=== PATIENT | male | born 1930 | race Caucasian/White ===

== ENCOUNTER 2017-01-25 12:51 | Inpatient (IN) | payer OTHER ==
[2017-01-25] MEDS ORDERED: NS 1,000 ML IV PRN (13:53)
[2017-01-25] MEDS ORDERED: SODIUM CHLORIDE 0.9% INJ ONE (13:54)
[2017-01-25] MEDS ORDERED: PROTONIX IV ONE (13:54)
--- NOTE | 2017-01-25 13:57 | PROVIDER DOCUMENTATION ---
HPI-Abdominal Pain/GI Problem - General Source: family - History of Present Illness-ABD Nature of Presenting Problems: Patient is a 86 y/o M that presents with possible lower GI bleed. Family reports patient has a large dark BM Wednesday. Home Health came to check on patient , sent in sample and it came back positive for blood in stool. patient denies any pain. He is on Xarelto. Reports some generalized weakness. Quality of Pain: reports: none Severity in ED: reports: moderate Onset/Duration: reports: abrupt, 4 days ago Timing: reports: still present Activities at Onset: reports: none Modifying Factors: improves with: nothing Associated Symptoms: reports: weakness. denies: back/neck pain, constipation, diaphoresis, diarrhea, EENT symptoms, fever/chills, genitourinary problems, nausea, vomiting Dark Stools Present?: reports: black Rectal Bleeding: reports: none Rectal Pain: reports: none Recently seen or treated by another doctor?: No <Best Palma - Last Filed: 01/25/17 16:33> <Kuldeep Sarkar I - Last Filed: 01/25/17 16:43> - General Chief Complaint: GI Bleed Stated Complaint: POSS GI BLEED Time Seen by Provider: 01/25/17 13:40 Allergies/Adverse Reactions: Patient Allergies Allergy/AdvReac Type Severity Reaction Status Date / Time promethazine HCl * Allergy Intermediate Unknown Verified 01/25/17 13:12 [From Phenergan] Penicillins Allergy ANAPHYLAXIS Verified 01/25/17 13:12 piperacillin sodium * Allergy Unknown Verified 01/25/17 13:12 [From Zosyn] tazobactam sodium * Allergy Unknown Verified 01/25/17 13:12 [From Zosyn] adhesive AdvReac Mild RASH Verified 01/25/17 13:12 Home Medications: Home Medication List Medication Instructions Recorded Confirmed Last Taken Type Lansoprazole [Prevacid] 30 mg PO DAILY #0 12/13/13 01/25/17 01/25/17 08:00 Rx Amlodipine [Norvasc] 5 mg PO DAILY #30 tablet 11/29/15 01/25/17 01/25/17 08:00 Rx Ascorbic Acid [Vitamin C] 500 mg PO DAILY #30 tablet 11/29/15 01/25/17 01/25/17 08:00 Rx Aspirin 81 mg PO DAILY #30 chewtab 11/29/15 01/25/17 01/25/17 08:00 Rx Atenolol [Tenormin] 25 mg PO DAILY #30 tablet 11/29/15 01/25/17 01/25/17 08:00 Rx Calcium Carbonate/Vit D3 [Caltrate 1 each PO DAILY #30 tablet 11/29/15 01/25/17 01/25/17 08:00 Rx 600 + D] Cholecalciferol (Vit D3) [Vitamin 2,000 unit PO DAILY #30 tablet 11/29/1501/25/17 08:00 Rx D3] Cyanocobalamin (Vitamin B-12) 2,000 mg PO DAILY #30 tab.subl 11/29/15 01/25/17 01/25/17 08:00 Rx [Vitamin B-12] Escitalopram [Lexapro] 20 mg PO QAM #30 tablet 11/29/15 01/25/17 01/25/17 08:00 Rx Finasteride [Proscar] 5 mg PO DAILY #30 tablet 11/29/15 01/25/17 01/25/17 08:00 Rx Lipase/Protease/Amylase [Creon] 12,000 units PO TID CC #90 capsule 11/29/1501/25/17 08:00 Rx Rivaroxaban [Xarelto] 15 mg PO HS #30 tablet 11/29/15 01/25/17 01/25/17 08:00 Rx SIMVAstatin [Zocor] 10 mg PO QHS #30 tablet 11/29/15 01/25/17 01/25/17 08:00 Rx Buspirone [Buspar] 10 mg PO HS 01/25/17 01/25/17 01/24/17 22:00 History Donepezil [Aricept] 10 mg PO DAILY 01/25/17 01/25/17 01/25/17 08:00 History Glipizide 5 mg PO DAILY 01/25/17 01/25/17 01/25/17 08:00 History Quetiapine E.r. [Seroquel Xr] 50 mg PO HS 01/25/17 01/25/17 01/24/17 22:00 History Tamsulosin HCl 0.4 mg PO DAILY 01/25/17 01/25/17 01/25/17 08:00 History Vitamin E 400 mg PO DAILY 01/25/17 01/25/17 01/25/17 08:00 History Review of Systems - Adult - REVIEW OF SYSTEMS - ADULT Constitutional: denies: fever Eyes: reports: no symptoms reported Ears, Nose, Mouth & Throat: denies: ear pain, sinus problem, throat pain Cardiovascular: denies: chest pain, palpitations, syncope Respiratory: denies: cough, shortness of breath, wheezing Gastrointestinal: reports: rectal bleeding. denies: abdominal pain, hematemesis , constipation, diarrhea, nausea, vomiting Genitourinary: denies: dysuria, frequency, hematuria, urgency Musculoskeletal: reports: no symptoms reported Integumentary: reports: no symptoms reported Neurological: reports: no symptoms reported Psychiatric: reports: no symptoms reported Endocrine: reports: no symptoms reported Hematologic/Lymphatic: reports: no symptoms reported Allergic/Immunologic: reports: no symptoms reported All Other Systems: Reviewed and Negative <Best Palma - Last Filed: 01/25/17 16:33> Past History - Adult - PAST MEDICAL HISTORY-ADULT Review of Records: reports: Old Records Reviewed, Nursing Assessment Review, Medications Reviewed Cardiovascular: reports: A-Fib, CAD, HTN, hyperlipidemia, AL Respiratory: reports: COPD, sleep apnea Gastrointestinal: reports: GERD, pancreatitis (due to stricture, had to have percutaneous drainage due to unablitiy to get to throught EGD) Genitourinary: reports: cancer (hx of bladder), kidney stones, other (BPH) Musculoskeletal: reports: osteoporosis Neurological: reports: CVA, dementia, TIA, other (brain bleed) Other Conditions: reports: other (BPH) - PRIOR SURGERIES/PROCEDURES Surgical/Procedure History: reports: appendectomy, CABG, cholecystectomy, joint replacement (total hip and total shoulder), other (Whipple, bladder surgery) - IMMUNIZATION STATUS Childhood Immunizations: See Nurse Assessment Flu Vaccine: See Nurse Assessment - FAMILY HISTORY Family History: reviewed, not pertinent - SOCIAL HISTORY Smoking: non-smoker Living Situation: family <Best Palma - Last Filed: 01/25/17 16:33> Physical Exam-General - PHYSICAL EXAM-ADULT Initial Vital Signs Reviewed: Yes - CONSTITUTIONAL General Appearance: alert, other (ill appearing) - EYES Eyes: PERRL/EOMI, pink conjunctivae - HEAD, EARS, NOSE, MOUTH & THROAT HENMT: normocephalic/atraumatic, moist mucous membranes, normal ENT inspection - NECK Neck: full range of motion, normal inspection. negative: lymphadenopathy - RESPIRATORY Respiratory: lungs clear, normal breath sounds, no respiratory distress, no accessory muscle use - CARDIOVASCULAR Cardiovascular: no gallop, no murmur, bradycardia - GASTROINTESTINAL (ABDOMEN) Abdominal Exam: normal bowel sounds, non tender, soft, no organomegaly, no pulsatile mass, other (extensive midline surgical scar) - MUSCULOSKELETAL Extremity: no pedal edema, normal capillary refill, pelvis stable - SKIN Integumentary: pallor. negative: cyanosis - NEUROLOGIC Neurologic: grossly normal, no motor/sensory deficits - PSYCHIATRIC Psych/Mental Status: normal mood/affect, oriented x 3 <Best Palma - Last Filed: 01/25/17 16:33> Progress - PLAN OF CARE/RESULTS Progress/Plan/Lab Results: plan of care-labs, meds 0483- compared old CBC to one last in system, it reflected that the patient's H&H and platelet count went from 9 and 30 to [address]Scott Christopher paged Vital Signs Temp Pulse Resp BP Pulse Ox 01/25/17 14:52 73 19 98/62 93 L 01/25/17 12:52 97.8 F 58 L 14 113/58 96 promethazine HCl * [From Phenergan] Allergy (Intermediate, Verified 01/25/17 13: 12) Unknown bp bottoms out Penicillins Allergy (Verified 01/25/17 13:12) ANAPHYLAXIS piperacillin sodium * [From Zosyn] Allergy (Verified 01/25/17 13:12) Unknown tazobactam sodium * [From Zosyn] Allergy (Verified 01/25/17 13:12) Unknown adhesive Adverse Reaction (Mild, Verified 01/25/17 13:12) RASH Lansoprazole [Prevacid] 30 mg PO DAILY #0 12/13/13 Amlodipine [Norvasc] 5 mg PO DAILY #30 tablet 11/29/15 Ascorbic Acid [Vitamin C] 500 mg PO DAILY #30 tablet 11/29/15 Aspirin 81 mg PO DAILY #30 chewtab 11/29/15 Atenolol [Tenormin] 25 mg PO DAILY #30 tablet 11/29/15 Calcium Carbonate/Vit D3 [Caltrate 600 + D] 1 each PO DAILY #30 tablet 11/29/15 Cholecalciferol (Vit D3) [Vitamin D3] 2,000 unit PO DAILY #30 tablet 11/29/15 Cyanocobalamin (Vitamin B-12) [Vitamin B-12] 2,000 mg PO DAILY #30 tab.subl 12/14 Escitalopram [Lexapro] 20 mg PO QAM #30 tablet 11/29/15 Finasteride [Proscar] 5 mg PO DAILY #30 tablet 11/29/15 Lipase/Protease/Amylase [Creon] 12,000 units PO TID CC #90 capsule 11/29/15 Rivaroxaban [Xarelto] 15 mg PO HS #30 tablet 11/29/15 SIMVAstatin [Zocor] 10 mg PO QHS #30 tablet 11/29/15 Buspirone [Buspar] 10 mg PO HS 01/25/17 Donepezil [Aricept] 10 mg PO DAILY 01/25/17 Glipizide 5 mg PO DAILY 01/25/17 Quetiapine E.r. [Seroquel Xr] 50 mg PO HS 01/25/17 Tamsulosin HCl 0.4 mg PO DAILY 01/25/17 Vitamin E 400 mg PO DAILY 01/25/17 Laboratory 01/25/17 01/25/17 01/25/17 13:56 13:56 13:56 WBC RBC Hgb Hct MCV MCH MCHC RDW Std Deviation Plt Count MPV Immature Gran % (Auto) Neut % (Auto) Lymph % (Auto) Stark % (Auto) Eos % (Auto) Baso % (Auto) Immature Gran # (Auto) Neut # (Auto) Lymph # (Auto) Stark # (Auto) Eos # (Auto) Baso # (Auto) PT 15.4 H INR 1.45 PTT (Actin FS) 34.0 Sodium 139 Potassium 4.6 Chloride 108 H Carbon Dioxide 18 L Anion Gap 13 BUN 49 H Creatinine 2.8 H Estimated GFR/1.73 m2 21 BUN/Creatinine Ratio 18 Glucose 269 H Calculated Osmolality 300 Calcium 8.4 L Total Bilirubin 0.21 AST 14 ALT 9 L Alkaline Phosphatase 149 H Total Protein 6.3 Albumin 2.8 L Globulin 3.5 Albumin/Globulin Ratio 0.8 Blood Type A POSITIVE Antibody Screen NEGATIVE 01/25/17 13:56 WBC 5.75 RBC 2.33 L Hgb 6.5 L Hct 21.1 L MCV 90.6 MCH 27.9 MCHC 30.8 L RDW Std Deviation 16.2 H Plt Count 117 L MPV 10.4 Immature Gran % (Auto) 0.5 Neut % (Auto) 78.2 H Lymph % (Auto) 10.6 L Stark % (Auto) 9.4 H Eos % (Auto) 1.0 Baso % (Auto) 0.3 Immature Gran # (Auto) 0.03 Neut # (Auto) 4.49 Lymph # (Auto) 0.61 L Stark # (Auto) 0.54 Eos # (Auto) 0.06 Baso # (Auto) 0.02 PT INR PTT (Actin FS) Sodium Potassium Chloride Carbon Dioxide Anion Gap BUN Creatinine Estimated GFR/1.73 m2 BUN/Creatinine Ratio Glucose Calculated Osmolality Calcium Total Bilirubin AST ALT Alkaline Phosphatase Total Protein Albumin Globulin Albumin/Globulin Ratio Blood Type Antibody Screen Orders Category Date Time Status Saline Loc DIRECTED Care 01/25/17 13:53 Active CBC WITH ELECTRONIC DIFF [HEME] Stat Lab 01/25/17 13:56 Completed COMPREHENSIVE METABOLIC PANEL [CHEM] Stat Lab 01/25/17 13:56 Completed OCCULT BLOOD NON-FECES Stat Lab 01/25/17 13:53 Uncollected OCCULT BLOOD SCREENING [STOOL] Stat Lab 01/25/17 13:53 Uncollected PRBC [LRPC (RED CELLS)] [BBK] Stat Lab 01/25/17 16:23 Uncollected PROTIME WITH INR [COAG] Stat Lab 01/25/17 13:56 Completed PTT [COAG] Stat Lab 01/25/17 13:56 Completed TYPE & SCREEN [BBK] Stat Lab 01/25/17 13:56 Completed 0.9% Sodium Chloride Inj [Ns] 1,000 ml Med 01/25/17 13:53 Active IV 125 mls/hr Pantoprazole [Protonix] Med 01/25/17 13:54 Discontinued 40 mg IV NOW ONE Sodium Chloride 0.9% Med 01/25/17 13:54 Discontinued 10 ml INJ NOW ONE - CONSULTS/PCP/HOSPITALIST Notification #1 *Consult/PCP/Hospitalist*: Dr.Scott Christopher Time Discussed: 16:33 Reason/Comments: admit for lower GI bleed Consult Disposition: Admit <Palma,Best T. - Last Filed: 01/25/17 16:33> Departure - Departure Time of Disposition Order: 16:35 Certified Medical Emergency: Emergent <Best Palma - Last Filed: 01/25/17 16:33> - Departure Time of Disposition Order: 16:40 Certified Medical Emergency: Emergent <Kuldeep Sarkar I - Last Filed: 01/25/17 16:43> - Departure DIAGNOSIS: Lower GI bleed Disposition: ADMITTED INPATIENT 09 Condition: Stable Referrals: Humza Christopher MD [Primary Care Provider] - Attestation - Scribe Verification/Attestation Scribe:: Best Palma Acting as Scribe for:: Kuldeep Sarkar Scribe documention review:: This chart was documented by a scribe and accurately reflects the service the provider performed and the decisions made by the provider. <Best Palma - Last Filed: 01/25/17 16:33> Physician Attestation - Physician Attestation I, the provider, attest to the following statement:: Kuldeep Sarkar Physician documentation Attestation:: This documentation recorded by the scribe accurately reflects the service I personally performed and the decisions made by me. <Best Palma - Last Filed: 01/25/17 16:33> - Physician Attestation I, the provider, attest to the following statement:: Kuldeep Sarkar Physician documentation Attestation:: This documentation recorded by the scribe accurately reflects the service I personally performed and the decisions made by me. <Kuldeep Sarkar I - Last Filed: 01/25/17 16:43>
[2017-01-25 14:17] LABS: MANUAL DIFF NEEDED? NO
[2017-01-25 14:29] LABS: BASO% 0.3 % (0.0-0.8); EOS# 0.06 X1000 (0.0-0.7); HEMATOCRIT 21.1 % (42.0-52.0); HEMOGLOBIN 6.5 g/dL (14.0-18.0); IMM GRAN# 0.03 X1000 (0.0-0.04); IMM GRAN% 0.5 % (0.0-0.5); LYMPH# 0.61 X1000 (1.2-3.4); LYMPH% 10.6 % (20.5-51.1); MCH 27.9 PG (27-31); MCHC 30.8 g/dL (33-37); MCV 90.6 FL (81-99); MONO# 0.54 X1000 (0.11-0.59); MONO% 9.4 % (1.7-9.3); MPV 10.4 FL (7.4-10.4); NEUT% 78.2 % (42.2-75.2); PLT 117 X1000 (130-400); RBC 2.33 XMIL (4.7-6.1)
[2017-01-25 14:32] LABS: INR 1.45; PROTIME 15.4 Seconds (9.2-11.7)
[2017-01-25 14:43] LABS: ALBUMIN 2.8 g/dL (3.5-5.0); CALCIUM 8.4 mg/dL (8.8-10.2); POTASSIUM 4.6 mmol/L (3.5-5.1); TOTAL BILIRUBIN 0.21 mg/dL (0.20-1.00); TOTAL PROTEIN 6.3 g/dL (6.3-8.3)
[2017-01-25] MEDS ORDERED: NS 500 ML IV ONE (17:48)
[2017-01-25] MEDS ORDERED: ZOFRAN IV PRN (19:10)
[2017-01-25] MEDS ORDERED: TYLENOL PO PRN (19:10)
[2017-01-25] MEDS ORDERED: NS 1,000 ML IV SCH (19:10)
[2017-01-25 21:12] LABS: URINE CULTURE NEEDED? NO; URINE SOURCE CATH
[2017-01-25 21:16] LABS: BILIRUBIN URINE NEGATIVE (NEGATIVE); BLOOD URINE TRACE (NEGATIVE); COLOR YELLOW; GLUCOSE URINE NEGATIVE (NEGATIVE); LEUKOCYTES URINE NEGATIVE (NEGATIVE); NITRITE URINE NEGATIVE (NEGATIVE); PROTEIN URINE NEGATIVE (NEGATIVE); SP GRAVITY URINE 1.016; TURBIDITY URINE CLEAR (CLEAR); UROBILINOGEN URINE NORMAL (NORMAL)
[2017-01-25 21:18] LABS: URINE MICRO REVIEW NEEDED? YES
[2017-01-25 21:21] LABS: UR EPITHELIAL CELLS <10 /HPF (<10); URINE BACTERIA NEGATIVE /HPF; URINE RBC <10 /HPF (<10); URINE WBC <10 /HPF (<10)
[2017-01-25 21:45] LABS: URINE SMALL ROUND CELLS TRANS PRESENT
[2017-01-25] MEDS: PROTONIX IV SCH (21:58)
[2017-01-25] MEDS: HUMALOG SUBQ SCH (21:59)
[2017-01-25] MEDS: NS 1,000 ML IV SCH (22:00)
[2017-01-25] MEDS: SEROQUEL XR PO SCH (22:13)
[2017-01-25] MEDS: BUSPAR PO SCH (22:13)
[2017-01-26 02:30] LABS: HEMATOCRIT 25.9 % (42.0-52.0); HEMOGLOBIN 8.4 g/dL (14.0-18.0)
[2017-01-26 02:34] LABS: ALBUMIN 2.5 g/dL (3.5-5.0); CALCIUM 8.3 mg/dL (8.8-10.2); POTASSIUM 3.8 mmol/L (3.5-5.1); TOTAL BILIRUBIN 0.43 mg/dL (0.20-1.00)
--- NOTE | 2017-01-26 04:49 | HISTORY AND PHYSICAL ---
PRIMARY CARE PHYSICIAN: Humza Christopher MD CHIEF COMPLAINT: Melenic stools. HISTORY OF PRESENT ILLNESS: An 86-year-old white male with a very complicated past medical history, presents for evaluation of above-mentioned symptoms. Current history of present illness began on January 13. At that time, patient was evaluated in clinic secondary to intractable nausea and vomiting. He was noted to have had 1 episode of vomitus significant for blood clots. Full evaluation was pursued. The patient was found to have a urinary tract infection. Treatment with levofloxacin therapy was initiated. The patient did reasonably well until evening. At that time, patient developed an episode of melenic stools. By Wednesday, he had an episode of hematemesis as well as melena. He has experienced intermittent episodes of melenic stools since that time. The patient's family notes significant weakness and fatigue. He also has been described as pale. Home Health was contacted on Wednesday. Hemoccult was performed with results returning home on Wednesday. My office was contacted and patient was instructed to go to the emergency department immediately. Upon arrival, patient was noted to be significantly anemic with Hemoccult-positive stools. Patient will be admitted to the hospital for full evaluation and management of presumed upper GI bleed. Of note, patient denies fevers, chills, shortness of breath, chest pains, palpitations, dysuria, hematuria, pyuria. He has experienced intermittent nausea and 1 episode of hematemesis in addition to the one described above. PAST MEDICAL HISTORY: 1. History of an abdominal wall abscess diagnosed in 2006 status post surgical intervention by Dr. Yu. 2. Multiple actinic keratoses. 3. History of coronary artery disease requiring stent placement in 2001 and coronary artery bypass grafting in 2003. 4. Right shoulder pain status post a total knee total arthroplasty in 2011. 5. History of recurrent ascending cholangitis. 6. Atrial fibrillation. 7. Frost's esophagus. 8. Bladder cancer. 9. Benign prostatic hypertrophy. 10. Mild carotid artery disease. 11. Cholecystectomy associated with Whipple procedure. 12. Chronic kidney disease with baseline creatinine between 1.4 and 1.7. 13. Depression. 14. Colonic diverticulosis. 15. Diabetes. 16. Insomnia. 17. Reflux disease. 18. Hypertension. 19. Hyperlipidemia. 20. Iron deficiency anemia. 21. 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 22. Nephrolithiasis. 23. Dementia. 24. 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 25. History of stroke. CURRENT MEDICATIONS: 1. Amlodipine 10 mg daily. 2. Aricept 10 mg at bedtime. 3. Aspirin 81 mg daily. 4. Atenolol 25 mg daily. 5. Bupropion 10 mg at bedtime. 6. Caltrate plus vitamin D once a day. 7. CoQ10 100 mg daily. 8. Creon 12,000 units 3 times daily. 9. Lexapro 20 mg daily. 10. Iron sulfate 325 mg daily. 11. Finasteride 5 mg daily. 12. Flomax 0.4 mg. 13. Glipizide ER 5 mg in the morning and 2.5 at bedtime. 14. Lansoprazole 30 mg daily. 15. Zofran as needed. 16. Seroquel 50 mg at bedtime. 17. Simvastatin 10 mg at bedtime. 18. Vitamin B12 tablets daily. 19. Vitamin C ER 1000 mg daily. 20. Vitamin D3 2000 units daily. 21. Xarelto 15 mg daily. ALLERGIES: Patient states he is allergic Lunesta, Phenergan, Ultram, and Zosyn. SOCIAL HISTORY: Patient denies tobacco, alcohol or illicit drug use. 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 He enjoys fishing. He is unable to exercise routinely. FAMILY HISTORY: Patient's father passed at age 78 secondary to complications of an acute myocardial infarction. Patient's mother passed at age 76 secondary to complications of stroke. REVIEW OF SYSTEMS: A 12 point review of systems was performed. Pertinent positives and negatives are noted in the History of Present Illness. PHYSICAL EXAMINATION: VITAL SIGNS: Temperature 98.5 degrees, heart rate 65, respirations 18, blood pressure is 113/61. GENERAL: Elderly, no acute distress. CARDIOVASCULAR: Irregularly irregular. No significant murmurs, rubs, or gallops. PULMONARY: Clear to auscultation bilaterally. ABDOMEN: Soft, nontender, nondistended. Positive bowel sounds. EXTREMITIES: Moves all extremities well. No significant clubbing, cyanosis, or edema. NEUROLOGIC: Cranial nerves 2 through 12 are grossly intact. Motor and sensory grossly intact. PSYCHOLOGIC: Examination reveals pleasant dementia. LABORATORY DATA: White blood cell count 5.75, hemoglobin 6.5, hematocrit 21.1, platelet count 217,000. PT 15.4, INR is 1.45, PTT is 34.0. Sodium 139, potassium 4.6, chloride 108, bicarb 18, BUN 49, creatinine 2.8, glucose 269, calcium 8.4, total bilirubin 0.21, total protein 6.3, albumin 2.8, alkaline phosphatase 149, AST 14, ALT 9. ASSESSMENT AND PLAN: 86-year-old white male with a very complicated past medical history, presents for evaluation of Hemoccult-positive stools with anemia. The patient's history is most consistent with an upper GI bleed. In addition, patient was found to have [id number] renal failure. The patient will be admitted to the hospital for full evaluation and management of these conditions. 1. Admit to CICU. 2. Presumed upper gastrointestinal bleed - The patient's symptoms are most consistent. We discussed this in detail. At this point, there are significant risks with either intervening, or conservative management. At this point, we will start patient on pantoprazole 40 mg IV q.[address] patient n.p.o. We will follow serial hemoglobin and hematocrit evaluations every 6 hours and transfuse when he hematocrit is less than 24. We will consult Dr. Porter in the morning. We will consider whether further intervention is warranted. 3. Acute renal failure - As above, patient's creatinine is above his baseline. We will treat patient with IV fluids. This, too, will be followed. 4. Hypotension - Upon admission, patient was noted to be hypotensive. The patient has achieved improvement with hydration and with transfusion. We will follow this. 5. Profound weakness - The patient has baseline weakness, however with his anemia, this has progressed. Once able, we will plan to initiate physical therapy. 6. Coronary artery disease - patient has known disease. We will continue to optimize his medical management. 7. Anticoagulation - The patient's anticoagulation including Xarelto and aspirin have been held. At this point, the risk of continuing treatment outweighs benefits. 8. Atrial fibrillation - The patient does appear to be in atrial fibrillation on examination today. We will hold anticoagulation as noted. We will continue atenolol for rate control. 9. Depression/dementia - We will continue patient on his home medications. 10. Diabetes. We will continue patient on sliding scale insulin. 11. Fluid, electrolytes, nutrition - We will monitor electrolytes. Normal saline 100 mL an hour. N.p.o. prophylaxis. Patient will be placed on SCDs.
[2017-01-26] MEDS: HUMALOG SUBQ SCH ×4 (06:12→20:04)
[2017-01-26] MEDS: NS 1,000 ML IV SCH ×3 (07:31→20:03)
[2017-01-26 08:57] LABS: HEMATOCRIT 26.7 % (42.0-52.0); HEMOGLOBIN 8.6 g/dL (14.0-18.0)
[2017-01-26] MEDS: PROSCAR PO SCH (09:24)
[2017-01-26] MEDS: LEXAPRO PO SCH (09:24)
[2017-01-26] MEDS: ARICEPT PO SCH (09:24)
[2017-01-26] MEDS: FLOMAX PO SCH (09:24)
[2017-01-26] MEDS: PROTONIX IV SCH ×2 (09:24→20:04)
[2017-01-26] MEDS: SODIUM CHLORIDE 0.9% INJ SCH (09:24)
[2017-01-26] MEDS: TENORMIN PO SCH (09:24)
--- NOTE | 2017-01-26 14:11 | CONSULTATION ---
DATE OF CONSULTATION: 01/26/2017 REFERRING PHYSICIAN: uHmza Christopher MD REASON FOR REFERRAL: Melena and anemia. HISTORY OF PRESENT ILLNESS: This is an 86-year-old, white male, who had been followed by Dr. Christopher as an outpatient with episodes of vomiting and hematemesis. He was treated for a urinary tract infection with Levaquin. The patient had developed melanic stools on Wednesday in through the weekend. He contacted Dr. Christopher office on Wednesday and was instructed to go to the emergency room to be admitted. On admission, the patient was found to be anemic with Hemoccult-positive stool. He was admitted for further treatment and evaluation. Currently, the patient is complaining of lower leg pain. He denied any abdominal pain. I have talked with his and other family member who is at the bedside. PAST MEDICAL HISTORY: For coronary artery disease, history of stent placement, history of coronary artery bypass graft in 2003, history of atrial fibrillation, history of pancreatic mass, status post Whipple procedure, and history of ascending cholangitis. History of bladder cancer, benign prostatic hypertrophy, chronic kidney disease, depression, diabetes, gastroesophageal reflux disease, hypertension, hyperlipidemia, history of iron-deficiency anemia, history of nephrolithiasis, dementia, osteoarthritis, and history of cerebrovascular accident. PAST SURGICAL HISTORY: He has had coronary artery bypass graft in 2003, total knee replacement in 2011, cholecystectomy, history of Whipple procedure secondary to pancreatic mass, history of right hip replacement. ALLERGIES: Phenergan with unknown reaction, penicillin causing anaphylaxis, Zosyn unknown reaction, and adhesive causing a rash. HOME MEDICATIONS: Vitamin E 400 mg daily, vitamin B12 2000 mg daily, vitamin C 500 mg daily. Caltrate plus D daily. Aspirin 81 mg daily. Vitamin D3 2000 units daily. Glipizide 5 mg daily. Seroquel XR 50 mg every night, BuSpar 10 mg every night, Proscar 5 mg daily, Zocor 10 mg every night, Aricept 10 mg daily, Xarelto 15 mg every night, which is currently on hold due to his gastrointestinal bleed, Lexapro 20 mg every morning, Creon 18943 units 3 times a day, Prevacid 30 mg daily, Tenormin 25 mg daily, Norvasc 5 mg daily, tamsulosin 0.4 mg daily. SOCIAL HISTORY: He is . No reported tobacco or alcohol use. He is retired. REVIEW OF SYSTEMS: Per history of present illness. PHYSICAL EXAMINATION: Vital Signs: Temperature 97.6 degrees, pulse 63, respirations 18, blood pressure 118/67. General Appearance: Generally, the patient was with his eyes closed during receiving information from the family, but he did respond and open his eyes to stimulus. He followed commands. He answered my questions. He is in no acute distress. Cardiovascular: Irregular rate. Respiratory: Lung sounds essentially clear. Abdomen: Soft, nontender, positive bowel sounds. Extremities: No lower extremity edema noted. LABORATORY: Hematology: White count 5.75, hemoglobin 8.6, hematocrit 26.7. He has received 2 units of packed red blood cells since admission. MCV 90.6, platelet 117,000, coagulation Prothrombin time 15.4, INR 1.45, PTT 34.0. Chemistry: Sodium 143, potassium 3.8, chloride 114, CO2 17, BUN 42, creatinine 2.3, glucose 79, total bilirubin 0.43. AST 14, ALT 8, alkaline phosphatase 138. ASSESSMENT: 1. Hematemesis. 2. Melena. 3. Anemia. 4. Hemoccult-positive stool. 5. History of atrial fibrillation on home Xarelto, which is currently on hold since admission. 6. Elevated BUN and creatinine with history of chronic kidney disease. 7. Coronary artery disease. PLAN: Continue supportive care. Continue to monitor for active bleeding. Monitor hemoglobin and hematocrit and transfuse further packed red blood cells as needed. Dr. Christopher has talked with the about options of watching and waiting to see if his hemoglobin and hematocrit drops any further before proceeding with an endoscopy. Another option is to proceed with an esophagogastroduodenoscopy first. The patient's Xarelto is currently on hold. From discussion with the , she would like to proceed with esophagogastroduodenoscopy if able. I have discussed this case with Dr. Ventura and he will see the patient and further plans will be made as needed. I have discussed the esophagogastroduodenoscopy procedure with the , along with the benefits and risk of the procedure and she wishes to proceed if necessary. Thank you for this consultation. I have also talked with Dr. Christopher in person about the patient. Dictated by MARY ANN Montero for Papo Porter MD
[2017-01-26 15:09] LABS: HEMOGLOBIN 8.8 g/dL (14.0-18.0)
[2017-01-26 19:58] LABS: HEMATOCRIT 28.4 % (42.0-52.0); HEMOGLOBIN 9.1 g/dL (14.0-18.0)
[2017-01-26] MEDS: SEROQUEL XR PO SCH (20:04)
[2017-01-26] MEDS: BUSPAR PO SCH (20:04)
--- NOTE | 2017-01-26 22:23 | PROGRESS NOTE ---
DATE: 01/26/2017 SUBJECTIVE: The patient was originally seen this morning. At that time, patient was resting well. He denied significant nausea, vomiting, shortness of breath, or chest discomfort. No further melenic bowel movements had been identified. This evening upon my arrival, the patient continues to do reasonably well. He was tolerating a liquid diet. He remained very weak. He is pleasantly confused. OBJECTIVE: Vital signs: T-max 98.3 degrees, heart rate 55-118, respirations 14-20 blood pressure 111-154 over 62-87. General: Elderly, no acute distress. Cardiovascular: Regular irregular. No significant murmurs, rubs, or gallops. Pulmonary: Clear to auscultation anteriorly. Abdomen: Soft, nontender, nondistended. Positive bowel sounds. Extremities: Moves all extremities well. No significant clubbing, cyanosis, or edema. Dermatologic: Evaluation reveals no evidence of rash. LABORATORY DATA: Hemoglobin 9.1, hematocrit 28.4. Sodium 143, potassium 3.8, chloride 114, bicarb 17, BUN 42, creatinine 2.3, glucose 79, calcium 8.3, total bilirubin 0.43, total protein 6.0, albumin 2.5, alkaline phosphatase 138, AST 14, ALT 18. ASSESSMENT AND PLAN: 1. Presumed upper gastrointestinal bleed. The patient has been transfused overnight. His hemoglobin, hematocrit at present time are acceptable. We will continue to hold Xarelto therapy. Dr. Porter was consulted and consideration has been made for possible EGD evaluation. For now, we will continue a proton pump inhibitor. We will follow this. 2. Acute renal failure. Patient's creatinine improved from 2.8-2.3. We will continue hydration. 3. Hypotension. Upon admission, the patient was noted to be slightly hypotensive. This likely was secondary to volume loss. We will continue to follow up for now. 4. Profound weakness. At this point, patient continues to be very weak. Patient is at risk for progressing to bedbound. As patient's hemoglobin hematocrit stabilize will plan to initiate physical therapy. We will follow this. 5. Coronary artery disease. Patient has known disease. We will continue to optimize his medical management. 6. Anticoagulation. At this point, the risk of treatment with Xarelto outweighs the benefits. We will continue to hold. 7. Atrial fibrillation. Patient is rate controlled. We will remain aware that we are unable to anticoagulate at present time. We will follow this. 8. Depression/anxiety. Will continue his home medications. 9. Disposition. At this point, patient continues to require [facility]pc care in a hospital setting. We will plan discharge home once appropriate.
[2017-01-27] MEDS: NS 1,000 ML IV SCH ×4 (01:07→21:05)
[2017-01-27 05:32] LABS: MANUAL DIFF NEEDED? NO
[2017-01-27 05:43] LABS: BASO% 0.2 % (0.0-0.8); EOS% 1.9 % (0.0-10.0); HEMATOCRIT 27.6 % (42.0-52.0); HEMOGLOBIN 8.9 g/dL (14.0-18.0); IMM GRAN# 0.03 X1000 (0.0-0.04); IMM GRAN% 0.6 % (0.0-0.5); LYMPH# 0.65 X1000 (1.2-3.4); LYMPH% 12.6 % (20.5-51.1); MCHC 32.2 g/dL (33-37); MCV 89.9 FL (81-99); MONO# 0.53 X1000 (0.11-0.59); MONO% 10.3 % (1.7-9.3); NEUT% 74.4 % (42.2-75.2); PLT 108 X1000 (130-400); RBC 3.07 XMIL (4.7-6.1)
[2017-01-27] MEDS: HUMALOG SUBQ SCH ×4 (06:12→22:45)
[2017-01-27 06:25] LABS: ALBUMIN 2.4 g/dL (3.5-5.0); CALCIUM 8.1 mg/dL (8.8-10.2); POTASSIUM 3.7 mmol/L (3.5-5.1); TOTAL BILIRUBIN 0.43 mg/dL (0.20-1.00); TOTAL PROTEIN 6.3 g/dL (6.3-8.3)
[2017-01-27] MEDS: FLOMAX PO SCH (08:47)
[2017-01-27] MEDS: ARICEPT PO SCH (08:47)
[2017-01-27] MEDS: LEXAPRO PO SCH (08:48)
[2017-01-27] MEDS: SODIUM CHLORIDE 0.9% INJ SCH (08:48)
[2017-01-27] MEDS: TENORMIN PO SCH (08:48)
[2017-01-27] MEDS: PROTONIX IV SCH ×2 (08:48→21:04)
[2017-01-27] MEDS: PROSCAR PO SCH (08:48)
--- NOTE | 2017-01-27 12:37 | PROGRESS NOTE ---
DATE: 01/27/2017 SUBJECTIVE: I have discussed the events over the last day with his . No reported active bleeding noted. He has had several bowel movements since admission that were charted to be brown and soft. He has received 2 units of packed red blood cells. The patient denies complaints. He does have dementia. OBJECTIVE: Vital Signs: Temperature 98.2 degrees, pulse 75, respirations 12, blood pressure 133/56. General: The patient is in no acute distress. He has talked with me and he denies any abdominal pain. Respiratory: Lung sounds clear. Cardiovascular: Normal sinus rhythm with a noted pause on one of the EKG strips. Abdomen: Soft, nontender. Positive bowel sounds. LABORATORY RESULTS: Hematology: White count 5.15. Hemoglobin 8.9, hematocrit 27.6, MCV 89.9. Chemistries: Sodium 140, potassium 3.7, chloride 111, CO2 18, BUN 29, creatinine 1.8 and glucose 121. ASSESSMENT AND PLAN: 1. GI bleed. 2. Anemia. 3. History of anticoagulation with Xarelto. 4. Atrial fibrillation. 5. Other medical problems. PLAN: Continue supportive care. Continue to hold the Xarelto for now and he has not had any active bleeding since admission. He has received packed red blood cells. We will continue to follow hemoglobin and hematocrit and follow for active bleeding. At this time after discussion with the patient's and with Dr. Jansen, we have decided conservative approach unless endoscopy is needed urgently. We will continue to follow and further plans will be made as needed. I have discussed the patient's status today with Dr. Porter. Dictated by MARY ANN Montero for Papo Porter MD
--- NOTE | 2017-01-27 18:06 | PROGRESS NOTE ---
DATE: 01/27/2017 SUBJECTIVE: Overall, patient's condition is largely unchanged from yesterday. The patient has been transfused packed red blood cells. With transfusion, patient has achieved stability of his hemoglobin and hematocrit. There has been no further evidence of significant melena. His p.o. intake remains marginal. He denies fevers, chills, nausea, or vomiting. His energy level remains very low. OBJECTIVE: T-max is 98.9, the heart rate 52-118, respirations 12-20, blood pressure 111-133 over 55-68.General: Elderly, no acute distress. Cardiovascular: Irregularly irregular. No significant murmurs, rubs, or gallops. Pulmonary: Clear to auscultation anteriorly. Abdomen: Soft, nontender, nondistended. Positive bowel sounds. Extremities: Moves all extremities well. No significant clubbing, cyanosis, or edema. Dermatologic: Evaluation reveals no evidence of rash. LABORATORY DATA: White blood cell count 5.15, hemoglobin 8.9, hematocrit 27.6, platelet count 108,000. Sodium 140, potassium 3.7, chloride 111, bicarb 18, BUN 29, creatinine 1.8. Glucose 121. Calcium 8.1. Total bilirubin 0.43, total protein 6.3, albumin 2.4, alkaline phosphatase 154, AST 17, ALT 8. ASSESSMENT AND PLAN: 1. Presumed upper gastrointestinal bleed - I am encouraged the patient's hemoglobin and hematocrit have stabilized. At this point, the means for treatment will continue to be discussed. Patient's understands that conservative measures without EGD is an option as well as pursuing EGD evaluation. She understands there are risks and benefits versus each of these plans. For now, we will continue to follow clinically. We will continue discussion with Dr. Porter. We will continue a proton pump inhibitor as well. 2. Acute renal failure. Patient's creatinine has approaches baseline. We will continue IV hydration. 3. Hypotension - patient has achieved resolution with blood transfusions and hydration. 4. Profound weakness - this is likely multifactorial exacerbated by his GI bleed. We will consult physical therapy. We will encourage p.o. intake. 5. Coronary artery disease - we will continue to optimize his medical management. 6. Anticoagulation - at this point, the risk of anticoagulation outweighs the benefits. We will continue to hold Xarelto therapy. 7. Atrial fibrillation - the patient has persistent atrial fibrillation. He is rate controlled. At this point, as described above, anticoagulation is not an option. We will remain aware. 8. Depression/dementia - we will continue patient's home medications. 9. Diabetes - we will continue patient on sliding scale insulin. 10. Disposition - at this point, patient continues to require penitentiary care in a hospital setting. We will plan discharge home once appropriate.
[2017-01-27] MEDS: SEROQUEL XR PO SCH (21:04)
[2017-01-27] MEDS: BUSPAR PO SCH (21:04)
[2017-01-28] MEDS: NS 1,000 ML IV SCH ×4 (05:06→22:05)
[2017-01-28 05:26] LABS: MANUAL DIFF NEEDED? NO
[2017-01-28 05:28] LABS: BASO% 0.3 % (0.0-0.8); EOS# 0.21 X1000 (0.0-0.7); EOS% 3.7 % (0.0-10.0); HEMATOCRIT 27.9 % (42.0-52.0); IMM GRAN# 0.04 X1000 (0.0-0.04); IMM GRAN% 0.7 % (0.0-0.5); LYMPH# 0.77 X1000 (1.2-3.4); LYMPH% 13.4 % (20.5-51.1); MCH 28.9 PG (27-31); MCHC 32.3 g/dL (33-37); MCV 89.7 FL (81-99); MONO# 0.63 X1000 (0.11-0.59); NEUT% 70.9 % (42.2-75.2); PLT 101 X1000 (130-400); RBC 3.11 XMIL (4.7-6.1)
[2017-01-28 06:33] LABS: ALBUMIN 2.5 g/dL (3.5-5.0); CALCIUM 8.2 mg/dL (8.8-10.2); TOTAL BILIRUBIN 0.45 mg/dL (0.20-1.00); TOTAL PROTEIN 5.7 g/dL (6.3-8.3)
[2017-01-28] MEDS: HUMALOG SUBQ SCH ×4 (06:41→20:55)
[2017-01-28] MEDS: PROTONIX IV SCH ×2 (09:13→20:55)
[2017-01-28] MEDS: ARICEPT PO SCH (09:13)
[2017-01-28] MEDS: SODIUM CHLORIDE 0.9% INJ SCH (09:13)
[2017-01-28] MEDS: PROSCAR PO SCH (09:13)
[2017-01-28] MEDS: TENORMIN PO SCH ×2 (09:14→09:16)
[2017-01-28] MEDS: FLOMAX PO SCH (09:14)
[2017-01-28] MEDS: LEXAPRO PO SCH (09:14)
[2017-01-28] MEDS: SEROQUEL XR PO SCH (20:55)
[2017-01-28] MEDS: BUSPAR PO SCH (20:55)
--- NOTE | 2017-01-29 04:10 | PROGRESS NOTE ---
DATE: 01/28/2017 SUBJECTIVE: Patient's overall condition has essentially stabilized. Patient continues to have profound weakness. He has experienced no further episodes of melena. He denies fevers, chills, nausea, vomiting, or shortness of breath, or chest discomfort. He remains profoundly weak, but is attempting to work with physical therapy. His p.o. intake is marginal. OBJECTIVE: Vital Signs: T-max 98.5 degrees, heart rate 53-77, respirations 18-22, blood pressure 125 to 141 over 50 to 72. General: Elderly, no acute distress. Cardiovascular: Irregularly irregular without significant murmurs, rubs or gallops. Pulmonary: Clear to auscultation anteriorly. Abdomen: Soft, nontender, nondistended. Positive bowel sounds. Extremities: Moves all extremities well. No significant clubbing, cyanosis, or edema. Dermatologic: Evaluation reveals no evidence of rash. LABORATORY DATA: White blood cell count 5.73, hemoglobin 9.0, hematocrit 27.9, platelet count 101,000. Sodium 143, potassium 4.0, chloride 110, bicarb 18, BUN 20, creatinine 1.5, glucose 117, calcium 8.2, total bilirubin 0.45, total protein 5.7, albumin 2.5, alkaline phosphatase 145, AST 16, ALT 8. ASSESSMENT AND PLAN: 1. Presumed upper gastrointestinal bleed - Patient's hemoglobin and hematocrit have stabilized suggesting hemostasis. At this point, the risk of an esophagogastroduodenoscopy outweighs the benefits. We will continue supportive care with a proton pump inhibitor. We will follow serial hemoglobin and hematocrit evaluations. 2. Acute renal failure. Patient's creatinine has returned to baseline. We will remain aware. 3. Hypotension - Patient has achieved improvement with hydration and blood transfusions. 4. Profound weakness - Patient will remain profoundly weak. The question is raised as to his rehabilitation potential. At this point, we will continue physical therapy. We will work towards improvement and stabilization of his condition with plans to work towards discharge home with 24 hour care. 5. Coronary artery disease - The patient has longstanding disease. We will continue to optimize his medical management. 6. Anticoagulation - At this point, the Xarelto is contraindicated. The patient does have an increased stroke risk; however, the risk of anticoagulation outweighs the benefits. 7. Atrial fibrillation - Patient is rate controlled. We will remain aware. 8. Depression/dementia - We will continue home medications. 9. Diabetes - We will continue patient on sliding scale insulin. 10. Disposition - At this point, patient continues to require prison care in the hospital setting. We will consult hospital social worker in the morning for rehab evaluation. We will consider discharge once available.
[2017-01-29] MEDS: NS 1,000 ML IV SCH (04:57)
[2017-01-29 05:32] LABS: MANUAL DIFF NEEDED? NO
[2017-01-29 05:58] LABS: ALBUMIN 2.5 g/dL (3.5-5.0); CALCIUM 7.9 mg/dL (8.8-10.2); POTASSIUM 3.5 mmol/L (3.5-5.1); TOTAL BILIRUBIN 0.48 mg/dL (0.20-1.00); TOTAL PROTEIN 5.9 g/dL (6.3-8.3)
[2017-01-29] MEDS: HUMALOG SUBQ SCH ×4 (06:30→22:20)
[2017-01-29 06:50] LABS: BASO% 0.2 % (0.0-0.8); EOS# 0.12 X1000 (0.0-0.7); HEMATOCRIT 26.1 % (42.0-52.0); HEMOGLOBIN 8.4 g/dL (14.0-18.0); IMM GRAN# 0.02 X1000 (0.0-0.04); IMM GRAN% 0.3 % (0.0-0.5); LYMPH# 0.73 X1000 (1.2-3.4); LYMPH% 12.4 % (20.5-51.1); MCH 29.1 PG (27-31); MCHC 32.2 g/dL (33-37); MCV 90.3 FL (81-99); MONO# 0.68 X1000 (0.11-0.59); MONO% 11.5 % (1.7-9.3); MPV 10.2 FL (7.4-10.4); NEUT% 73.6 % (42.2-75.2); PLT 93 X1000 (130-400); RBC 2.89 XMIL (4.7-6.1)
[2017-01-29] MEDS: LEXAPRO PO SCH (09:13)
[2017-01-29] MEDS: FLOMAX PO SCH (09:14)
[2017-01-29] MEDS: PROSCAR PO SCH (09:14)
[2017-01-29] MEDS: ARICEPT PO SCH (09:14)
[2017-01-29] MEDS: TENORMIN PO SCH (09:14)
[2017-01-29] MEDS: PROTONIX IV SCH ×2 (09:14→21:26)
--- NOTE | 2017-01-29 13:33 | PROGRESS NOTE ---
DATE: 01/29/2017 SUBJECTIVE: I have discussed with patient's family, and daughter. He has been moved from [facility]. Reports extreme weakness. Physical therapy has been working with the patient for strength training. No reported evidence of active bleeding. OBJECTIVE: Vital Signs: Temperature 97.1 degrees, pulse 72, respirations 18, blood pressure 150/59. Generally: Patient is resting and in no acute distress. Respiratory: Lung sounds clear. Abdomen: Soft, nontender, nondistended. Positive bowel sounds. LABORATORY: Hematology: White count 5.91, hemoglobin 8.4, hematocrit 26.1, MCV 90.3, platelet 93,000. Chemistry: Sodium 140, potassium 3.5, chloride 109, CO2 21, BUN 15, creatinine 1.5, glucose 112. ASSESSMENT AND PLAN: 1. GI bleed with stable hemoglobin and hematocrit with no evidence of active bleeding now. 2. Acute renal failure. His BUN and creatinine have improved. 3. Anticoagulation. Currently Xarelto is on hold. 4. Atrial fibrillation. 5. Weakness. Currently physical therapy working with the patient and most likely will plan for rehab after discharge. We will continue to follow hemoglobin and hematocrit and follow for any active bleeding. Transfuse packed red blood cells as needed. Dr. Porter will be on-call over the weekend. Dictated by MARY ANN Montero for Papo Porter MD
[2017-01-29] MEDS ORDERED: NS 1,000 ML IV SCH (17:32)
--- NOTE | 2017-01-29 17:43 | PROGRESS NOTE ---
DATE: 01/29/2017 SUBJECTIVE: The patient's overall condition continues to very slowly improve. His hemoglobin and hematocrit have remained stable. There has been no further evidence of melena. He remains very weak. He is working with Physical Therapy, but is only able to rise beside the bed. There has been no evidence of fevers, chills, nausea, and vomiting. His p.o. intake is marginal. OBJECTIVE: Vital Signs: T-max is 99.2 degrees, heart rate 60-87, respirations 18-22, blood pressure 123-150/56-78. General: Elderly. No acute distress. Cardiovascular: Irregularly irregular. No significant murmurs, rubs, or gallops. Pulmonary: Clear to auscultation anteriorly. Abdomen: Soft, nontender, nondistended. Positive bowel sounds. Extremities: Moves all extremities well. No significant clubbing, cyanosis, or edema. Dermatologic: Evaluation reveals no evidence of rash. LABORATORY DATA: White blood cell count 5.91, hemoglobin 8.4, hematocrit 26.1, platelet count 93,000. Sodium 140, potassium 3.5, chloride 109, bicarb 21, BUN 15, creatinine 1.5, glucose 112, calcium 7.9, total bilirubin 0.48, total protein 5.9, albumin 2.5, alkaline phosphatase 134, AST 15, ALT 8. ASSESSMENT AND PLAN: 1. Presumed upper gastrointestinal bleed - Patient's hemoglobin and hematocrit have stabilized. The patient has passed no further melena. Because of patient's multiple medical problems, I feel the risk of EGD outweigh the benefits. We will continue supportive care and follow serial hemoglobin and hematocrit evaluations. We will also continue to hold Xarelto and continue a proton pump inhibitor. 2. Acute renal failure - Patient's creatinine has returned to baseline. We will remain aware. 3. Hypotension - The patient has achieved improvement status post hydration and blood transfusions. 4. Profound weakness - The patient has baseline weakness, but has experienced a significant decrease in his strength with this upper GI bleed. We will continue physical therapy. We will plan transfer to rehabilitation on Wednesday. 5. Coronary artery disease - The patient has longstanding disease. We will continue to optimize his medical management. 6. Anticoagulation - As above, patient's Xarelto has been discontinued secondary to his upper GI bleed. We will remain aware. 7. Atrial fibrillation - Patient is rate controlled. We will remain aware. As above, anticoagulation has been held. 8. Depression/dementia - We will continue home medications. 9. Diabetes - We will continue patient on sliding scale insulin. 10. Disposition - At this point, patient continues to require [facility]dc care in a hospital setting. We will plan discharge to rehab on Wednesday.
[2017-01-29] MEDS: BUSPAR PO SCH (21:26)
[2017-01-29] MEDS: SEROQUEL XR PO SCH (21:27)
[2017-01-30 06:10] LABS: MANUAL DIFF NEEDED? NO
[2017-01-30] MEDS: HUMALOG SUBQ SCH ×3 (06:19→21:00)
[2017-01-30 06:31] LABS: ALBUMIN 2.4 g/dL (3.5-5.0); CALCIUM 7.9 mg/dL (8.8-10.2); POTASSIUM 3.7 mmol/L (3.5-5.1); TOTAL BILIRUBIN 0.38 mg/dL (0.20-1.00); TOTAL PROTEIN 6.2 g/dL (6.3-8.3)
[2017-01-30 06:33] LABS: BASO% 0.4 % (0.0-0.8); EOS# 0.12 X1000 (0.0-0.7); EOS% 2.2 % (0.0-10.0); HEMOGLOBIN 8.6 g/dL (14.0-18.0); LYMPH# 0.84 X1000 (1.2-3.4); LYMPH% 15.1 % (20.5-51.1); MCHC 31.9 g/dL (33-37); MCV 90.9 FL (81-99); MPV 9.9 FL (7.4-10.4); NEUT% 73.3 % (42.2-75.2); PLT 94 X1000 (130-400); RBC 2.97 XMIL (4.7-6.1)
[2017-01-30] MEDS: TENORMIN PO SCH (12:21)
[2017-01-30] MEDS: PROTONIX IV SCH ×2 (12:21→21:01)
[2017-01-30] MEDS: PROSCAR PO SCH (12:21)
[2017-01-30] MEDS: FLOMAX PO SCH (12:21)
[2017-01-30] MEDS: ARICEPT PO SCH (12:21)
[2017-01-30] MEDS: LEXAPRO PO SCH (12:21)
--- NOTE | 2017-01-30 13:16 | PROGRESS NOTE ---
DATE: 01/30/2017 SUBJECTIVE: No further sign of bleeding. Appears to be comfortable and resting pretty well according to family. OBJECTIVE: Vital Signs: Temp 98.4 degrees, pulse 66, respirations 18, blood pressure 143/68. Lungs: Clear in all lung reyes. Cardiovascular exam: Regular rhythm and rate without murmur or S3. Abdomen: Soft, nontender. Skin: Warm and dry. Blood sugars 183,147 and 215. ASSESSMENT AND PLAN: 1. Presumed upper gastrointestinal bleed. Patient's hemoglobin and hematocrit remained stable. No further signs of bleeding. Because of patient's multiple medical problems, Dr. Christopher did not want to pursue the risk of esophagogastroduodenoscopy unless he has further signs of bleeding. Continue to hold Xarelto and continue proton pump inhibitor. 2. Acute renal failure. Believe creatinine has returned to baseline. 3. Hypertension. He has received intravenous hydration and transfusions. 4. Profound weakness. Continue to pursue physical therapy and pursue rehabilitation. 5. History of coronary artery disease. Optimize his management. 6. Anticoagulation. The Xarelto has been discontinued because of gastrointestinal bleed. I feel the risk right now outweigh the benefits. 7. Atrial fibrillation. The rate is controlled. 8. Depression and dementia. 9. Diabetes mellitus type 2. DISPOSITION: They are hoping to get him to rehabilitation on Wednesday. I have reviewed all of his orders. I do not see any change. Apparently the Seroquel does help him quite a bit. He is on Seroquel ER 50 mg at bedtime, atenolol 25 mg a day intravenous to keep vein open, Flomax 0.4 mg daily, BuSpar 10 mg at bedtime.
[2017-01-30] MEDS: BUSPAR PO SCH (21:00)
[2017-01-30] MEDS: SEROQUEL XR PO SCH (21:01)
[2017-01-31] MEDS: HUMALOG SUBQ SCH ×3 (06:40→22:38)
[2017-01-31] MEDS: PROSCAR PO SCH (09:00)
[2017-01-31] MEDS: ARICEPT PO SCH (09:00)
[2017-01-31] MEDS: LEXAPRO PO SCH (09:00)
[2017-01-31] MEDS: FLOMAX PO SCH (09:00)
[2017-01-31] MEDS: PROTONIX IV SCH ×2 (09:00→22:40)
[2017-01-31] MEDS: TENORMIN PO SCH (09:00)
--- NOTE | 2017-01-31 14:46 | PROGRESS NOTE ---
DATE: 01/31/2017 SUBJECTIVE: Appears comfortable. He did have a few friends visit him from [place]. Family is curious why he had a little temp of 99 degrees yesterday, but he appears to remain afebrile. He appears comfortable. He has no complaints. Breathing comfortably. OBJECTIVE: Vital Signs: Temperature 98.2 degrees, pulse 68, respirations 20, blood pressure 136/61. HEENT: Pupils are equal, round, reactive. Lungs: Clear anterolateral. Cardiovascular: Regular rhythm and rate without murmur or S3. Abdomen: Soft. Skin: Warm and dry. LABS: Blood sugars 147, 233, 157. Reviewed lab from the 3rd. ASSESSMENT AND PLAN: 1. Presumed upper gastrointestinal bleed. Patient's hemoglobin and hematocrit have stabilized. No further sign of bleeding. Want to continue conservative care and want to avoid the risk of EGD at this point and further invasive work up. I will also continue hold Xarelto for now. 2. Acute renal failure. Patient's creatinine has returned to baseline. 3. Hypotension. Blood pressure is improving after hydration and blood transfusions. 4. Profound weakness. He feels like he may be getting a little better. Continue physical therapy. Plan is to get him to rehab. 5. Coronary artery disease. No sign of active ischemia at this time. He has had long-standing disease. 6. Anticoagulation. As above, we are going to hold the Xarelto. Feel the risks outweigh the benefits at this point. 7. Atrial fibrillation. Rate is controlled. 8. Depression and dementia, appear stable. 9. Diabetes mellitus type 2. Sugars under good control. 10. Disposition. Hope to get him to rehab tomorrow. LABORATORY: Review of his lab from yesterday. Hematocrit is stable at 27, hemoglobin 8.6. I stated, chemistries looked good. Creatinine baseline 1.5. Reviewed all of his orders. I do not anything to change at this point. His IV is at keep vein open. Tenormin 25 mg a day, Seroquel ER 50 mg at bedtime, Proscar 5 mg a day, Lexapro 20 mg q.a.m., Flomax 0.4 mg daily, BuSpar 10 mg at bedtime, Aricept 10 mg a day, Protonix 40 mg q.12.
--- NOTE | 2017-01-31 15:54 | PROGRESS NOTE ---
DATE: 01/31/2017 SUBJECTIVE: The patient's family states he is complaining of pain to his right neck and arm. Patient is lying on his back. He does have a pillow doubled up under his neck. OBJECTIVE: Respiratory: Lung sounds essentially clear. Abdomen: Soft, positive bowel sounds. Cardiovascular: Regular rate and rhythm. No acute distress noted. Vital Signs: Temperature 98.2 degrees. He did have a low-grade fever of 99.6, and 99.7 yesterday evening. Pulse 68, respirations 21, blood pressure 136/61. LABORATORY: Hematology count 5.56, hemoglobin 8.6, hematocrit 27, MCV 90.9. Chemistry: Sodium 141, potassium 3.7, chloride 109, CO2 21, BUN 22, creatinine 1.5, glucose 118, total bilirubin 0.388. AST 15, ALT 9, alkaline phosphatase 156. ASSESSMENT: 1. Anemia stable. No other noted bleeding. His Xarelto is on hold. 2. Weakness. He has been working with physical therapy. 3. Atrial fibrillation with anticoagulation on hold at the current time due to the gastrointestinal bleed. 4. Neck pain. Right arm pain. PLAN: Continue supportive care. I have assisted in turning the patient to his side and he also has some Tylenol ordered that we can see if helps with his pain. Continue other medications. Gastroenterology will be available as we continue to follow hemoglobin and hematocrit and monitor for any further bleeding. Dictated by MARY ANN Montero for Papo Porter MD
[2017-01-31] MEDS: BUSPAR PO SCH (22:39)
[2017-01-31] MEDS: SEROQUEL XR PO SCH (22:40)
[2017-02-01] MEDS: HUMALOG SUBQ SCH ×2 (06:44→11:37)
[2017-02-01 07:54] VITALS: BP 142/90
--- NOTE | 2017-02-01 08:41 | PROGRESS NOTE ---
DATE: 02/01/2017 SUBJECTIVE: The patient is awake and alert this morning. Family at the bedside. He has no complaints today. He denies any complaints of pain in his right arm and neck like he had yesterday. OBJECTIVE: Vital Signs: Temperature 98.3 degrees, pulse 74, respirations 18, blood pressure 142/90. LABORATORY RESULTS: From 01/30/2017, hematology: White count 5.56, hemoglobin 8.6, hematocrit 27.0, MCV 90.9. Chemistry: Sodium 141, potassium 3.7, chloride 109, CO2 21, BUN 20, creatinine 1.5, glucose 118. ASSESSMENT: 1. Anemia, stable. No further bleeding noted. His Xarelto has been on hold. 2. Weakness. Physical therapy has been working with him. He has plans to go to [facility]. 3. Atrial fibrillation with anticoagulation. Currently on hold due to recent GI bleed. 4. Neck pain and arm pain, improved. PLAN: Continue supportive care. Continue to monitor hemoglobin and hematocrit. Monitor for any further bleeding. He has plans to go to [facility]. GI will be available as needed. Dictated by MARY ANN Montero for Papo Porter MD
[2017-02-01] MEDS: ARICEPT PO SCH (09:56)
[2017-02-01] MEDS: TENORMIN PO SCH (09:57)
[2017-02-01] MEDS: LEXAPRO PO SCH (09:57)
[2017-02-01] MEDS: PROSCAR PO SCH (09:57)
[2017-02-01] MEDS: PROTONIX IV SCH (09:57)
[2017-02-01] MEDS: FLOMAX PO SCH (09:58)
--- NOTE | 2017-02-01 10:38 | DISCHARGE SUMMARY ---
ADMISSION DATE: 01/25/2017 DISCHARGE DATE: 02/01/2017 ADMISSION DIAGNOSIS: Melenic stools. DISCHARGE DIAGNOSES: 1. Presumed upper gastrointestinal bleed, resolved, 2. Acute renal failure, resolved. 3. Hypotension, resolved. 4. Profound weakness, improving. 5. Coronary artery disease, present on arrival. 6. Anticoagulation, held. 7. Atrial fibrillation, present on arrival. 8. Depression/dementia, present on arrival. 9. Diabetes, present on arrival. CONSULTATIONS: Dr. Porter with gastroenterology was consulted for further evaluation and management of presumed upper gastrointestinal bleed. PROCEDURES: None. HISTORY AND PHYSICAL EXAMINATION: See admit note. PHYSICAL EXAMINATION PRIOR TO DISCHARGE: Vital Signs: Temperature 98.3 degrees, heart rate 74, respirations 17, blood pressure is 142/90. General: Elderly, no acute distress. Cardiovascular: Irregularly irregular. No significant murmurs, rubs, or gallops. Pulmonary: Clear to auscultation anteriorly. Abdomen: Soft, nontender, nondistended. Positive bowel sounds. Extremities: Moves all extremities well. No significant clubbing, cyanosis, or edema. Dermatologic: Evaluation reveals no evidence of rash. LABORATORY DATA: None. HOSPITAL COURSE: Patient was admitted as per history and physical examination. Hospital course per condition is as follows: 1. Presumed upper gastrointestinal bleed-upon admission, patient was noted to have considerable anemia secondary to GI blood loss. The patient required blood transfusions to achieve adequate hemoglobin and hematocrit control. The patient's anticoagulation was held. An IV proton pump inhibitor was initiated. Dr. Porter was consulted for a presumed upper gastrointestinal bleed. Because of patient's comorbidities as well as stabilization of his condition, an EGD was not pursued. At this point, we will treat this supportively. His hemoglobin hematocrit have remained stable through the latter part of hospitalization. We will continue to follow this closely as an outpatient. At this point, aspirin and Xarelto will be held for at least 6 weeks. 2. Acute renal failure-upon admission, patient was noted to have acute renal failure. This likely was secondary to hypovolemia. With blood transfusions and IV hydration, his renal function returned to baseline. This will be followed. 3. Hypotension-upon admission, patient was noted to be hypotensive, also likely secondary to acute blood loss. With hydration and blood transfusions, patient has achieved resolution. 4. Profound weakness-this likely is secondary to a combination of chronic issues compounded by his acute blood loss anemia. While hospitalized, patient was treated for his acute blood loss anemia as described above. Physical therapy was initiated. At the time of discharge, patient was achieving some improvement. We will discharge to rehabilitation for further evaluation and management. 5. Coronary artery disease-patient has long-standing disease. He was maintained on his home regimen with the exception of his Xarelto and aspirin therapy. 6. Anticoagulation-as above, patient was on Xarelto and aspirin upon admission. Unfortunately, with an active GI bleed, this warranted medications being held. For now, patient will maintain off of Xarelto and aspirin therapy. We will consider resuming these in 6 weeks. 7. Atrial fibrillation-the patient is rate controlled. As above, the risk of anticoagulation outweighs the benefits. 8. Depression/dementia-the patient has longstanding disease. He will be continued on his home regimen. 9. Diabetes-again, patient has longstanding disease. At the time of discharge, we will resume Glucotrol therapy. We will continue patient on sliding scale insulin. DISCHARGE CONDITION: Stable. DISPOSITION: Discharged to rehabilitation. MEDICATIONS: 1. Acetaminophen 650 mg every 6 hours as needed. 2. Atenolol 25 mg daily. 3. BuSpar 10 mg at bedtime. 4. Donepezil 10 mg daily. 5. Lexapro 20 mg daily. 6. Finasteride 5 mg daily. 7. Seroquel XR 50 mg at bedtime. 8. Tamsulosin 0.4 mg daily. 9. Vitamin C 500 mg daily. 10. Calcium plus vitamin D daily. 11. Vitamin D3 2000 units daily. 12. Vitamin B12 2000 mg daily. 13. Iron sulfate 325 mg daily. 14. Glipizide 5 mg daily. 15. Lispro sliding scale with meals. 16. Creon 12,000 units 3 times a day with meals. 17. Pantoprazole 40 mg daily. 18. Simvastatin 10 mg at bedtime. 19. Vitamin E 400 mg daily. FOLLOWUP: The patient to follow up with me once rehab has been completed.
--- NOTE | 2017-02-01 11:48 | Diag Imaging Result Document ---
PROCEDURE NAME: CHEST-PORTABLE - 02/01/2017 AP PORTABLE CHEST DATED 02/01/2017 AT 1105 HOURS: FINDINGS: The inspiration is somewhat suboptimal. There is atelectasis over the right base which was not present on 11/28/2015. IMPRESSION: Right lower lobe atelectasis.
[2017-02-01] MEDS ORDERED: ZOFRAN PO ONE (12:36)
== END 2017-02-01 13:35 | DRG 378 ==
LOC: EDBD → ED 12:51 → SUPCPDRO 12:51 → EDIPHOLD 17:19 → 3S 21:01 → 3N 01-29 11:53
PROVIDERS: ADMIT Internal Medicine; ATTEND Internal Medicine
PROC: 30233N1 Transfusion of Nonautologous Red Blood Cells into Peripheral Vein, Percutaneous Approach (ICD-10-PCS; principal; 2017-01-25)
DX: K92.1 Melena (principal); N17.9 Acute kidney failure, unspecified; E11.22 Type 2 diabetes mellitus with diabetic chronic kidney disease; F03.90 Unspecified dementia, unspecified severity, without behavioral disturbance, psychotic disturbance, mood disturbance, and anxiety; I48.91 Unspecified atrial fibrillation; D62 Acute posthemorrhagic anemia; I25.10 Atherosclerotic heart disease of native coronary artery without angina pectoris; N40.0 Benign prostatic hyperplasia without lower urinary tract symptoms; I12.9 Hypertensive chronic kidney disease with stage 1 through stage 4 chronic kidney disease, or unspecified chronic kidney disease; N18.9 Chronic kidney disease, unspecified; K57.30 Diverticulosis of large intestine without perforation or abscess without bleeding; G47.00 Insomnia, unspecified; K21.9 Gastro-esophageal reflux disease without esophagitis; E78.5 Hyperlipidemia, unspecified; Z96.641 Presence of right artificial hip joint; M19.90 Unspecified osteoarthritis, unspecified site; F41.8 Other specified anxiety disorders; M79.601 Pain in right arm; M54.2 Cervicalgia; Z96.611 Presence of right artificial shoulder joint; Z66 Do not resuscitate; Z95.5 Presence of coronary angioplasty implant and graft; Z95.1 Presence of aortocoronary bypass graft; Z85.51 Personal history of malignant neoplasm of bladder; Z87.442 Personal history of urinary calculi; Z86.73 Personal history of transient ischemic attack (TIA), and cerebral infarction without residual deficits; Z79.899 Other long term (current) drug therapy; Z79.82 Long term (current) use of aspirin; Z79.01 Long term (current) use of anticoagulants; Z82.49 Family history of ischemic heart disease and other diseases of the circulatory system; Z82.3 Family history of stroke; I25.2 Old myocardial infarction; Z90.411 Acquired partial absence of pancreas
CPT/HCPCS: 36430; 71010; 80053; 81001; 82270; 82948; 85014; 85018; 85025; 85610; 85730; 86850; 86900; 86901; 86920; 94761; 96374; C9113; J1815; J2405; J7030; J7040; P9016; P9612; S0138; 97110-GP; 97530-GP; S0164

== ENCOUNTER 2017-02-24 16:57 | Inpatient (IN) ==
[2017-02-24] MEDS ORDERED: NS 1,000 ML IV PRN (17:13)
[2017-02-24] MEDS ORDERED: REGLAN IV ONE (17:14)
[2017-02-24] MEDS ORDERED: SANDOSTATIN IV ONE (17:15)
--- NOTE | 2017-02-24 17:35 | PROVIDER DOCUMENTATION ---
HPI-Abdominal Pain/GI Problem - General Chief Complaint: Vomiting Stated Complaint: VOMITING BLOOD Time Seen by Provider: 02/24/17 17:30 Source: RN/MD, EMS, old records Allergies/Adverse Reactions: Patient Allergies Allergy/AdvReac Type Severity Reaction Status Date / Time promethazine HCl * Allergy Intermediate Unknown Verified 01/25/17 13:12 [From Phenergan] latex Allergy Unknown Verified 02/24/17 17:13 Penicillins Allergy ANAPHYLAXIS Verified 01/25/17 13:12 piperacillin sodium * Allergy Unknown Verified 01/25/17 13:12 [From Zosyn] tazobactam sodium * Allergy Unknown Verified 01/25/17 13:12 [From Zosyn] adhesive AdvReac Mild RASH Verified 01/25/17 13:12 Home Medications: Home Medication List Medication Instructions Recorded Confirmed Last Taken Type Atenolol [Tenormin] 25 mg PO DAILY #30 tablet 11/29/15 02/24/17 01/25/17 08:00 Rx Calcium Carbonate/Vit D3 [Caltrate 1 each PO DAILY #30 tablet 11/29/15 02/24/17 01/25/17 08:00 Rx 600 + D] Cholecalciferol (Vit D3) [Vitamin 2,000 unit PO DAILY #30 tablet 11/29/1501/25/17 08:00 Rx D3] Cyanocobalamin (Vitamin B-12) 2,000 mg PO DAILY #30 tab.subl 11/29/15 02/24/17 01/25/17 08:00 Rx [Vitamin B-12] Escitalopram [Lexapro] 20 mg PO QAM #30 tablet 11/29/15 02/24/17 01/25/17 08:00 Rx Finasteride [Proscar] 5 mg PO DAILY #30 tablet 11/29/15 02/24/17 01/25/17 08:00 Rx Lipase/Protease/Amylase [Creon] 12,000 units PO TID CC #90 capsule 11/29/1501/25/17 08:00 Rx SIMVAstatin [Zocor] 10 mg PO QHS #30 tablet 11/29/15 02/24/17 01/25/17 08:00 Rx Buspirone [Buspar] 10 mg PO HS 01/25/17 02/24/17 01/24/17 22:00 History Donepezil [Aricept] 10 mg PO DAILY 01/25/17 02/24/17 01/25/17 08:00 History Glipizide 5 mg PO DAILY 01/25/17 02/24/17 01/25/17 08:00 History Quetiapine E.r. [Seroquel Xr] 50 mg PO HS 01/25/17 02/24/17 01/24/17 22:00 History Tamsulosin HCl 0.4 mg PO DAILY 01/25/17 02/24/17 01/25/17 08:00 History Vitamin E 400 mg PO DAILY 01/25/17 02/24/17 01/25/17 08:00 History Amlodipine [Norvasc] 10 mg PO BID 02/24/17 02/24/17 Unknown History Ascorbic Acid [Vitamin C] 1,000 mg PO DAILY 02/24/17 02/24/17 Unknown History Aspirin 81 mg PO DAILY 02/24/17 02/24/17 Unknown History Lansoprazole 30 mg PO BID 02/24/17 02/24/17 Unknown History Pyridoxine HCl [Vitamin B-6] 100 mg PO DAILY 02/24/17 02/24/17 Unknown History Ubidecarenone [Co Q-10] 100 mg PO DAILY 02/24/17 02/24/17 Unknown History - History of Present Illness-ABD Nature of Presenting Problems: 86 y/o severly demented patient was brought by EMS with a complaint of vomiting blood this morning. No hx can be taken from the patient. Previous records indicated that he has multiple hx of upper and lower GI bleeding. GI was consulted in the previous admission but EGD was not favored in view of the patient's age and co-morbidities. Abdominal Pain Onset Location: reports: epigastric Onset/Duration: reports: unsure Timing: reports: gone now Review of Systems - Adult - REVIEW OF SYSTEMS - ADULT ROS:: unobtainable per condition Constitutional: reports: no symptoms reported Eyes: reports: no symptoms reported Ears, Nose, Mouth & Throat: reports: no symptoms reported Cardiovascular: reports: no symptoms reported Respiratory: reports: no symptoms reported Gastrointestinal: reports: hematemesis (as per EMS report) Genitourinary: reports: no symptoms reported Musculoskeletal: reports: no symptoms reported Integumentary: reports: no symptoms reported Neurological: reports: no symptoms reported Psychiatric: reports: no symptoms reported Endocrine: reports: no symptoms reported Hematologic/Lymphatic: reports: no symptoms reported Allergic/Immunologic: reports: no symptoms reported All Other Systems: Reviewed and Negative Past History - Adult - PAST MEDICAL HISTORY-ADULT Review of Records: reports: Nursing Assessment Review, Medications Reviewed Major Childhood Illnesses: reports: denies history Cardiovascular: reports: A-Fib, CAD, HTN, hyperlipidemia, OR Respiratory: reports: COPD, sleep apnea Gastrointestinal: reports: GERD, pancreatitis (due to stricture, had to have percutaneous drainage due to unablitiy to get to throught EGD) Obstetrical/Gynecological: reports: denies history Genitourinary: reports: cancer (hx of bladder), kidney stones, other (BPH) Musculoskeletal: reports: osteoporosis Neurological: reports: CVA, dementia, TIA, other (brain bleed) Endocrine/Immune: reports: denies history Other Conditions: reports: other (BPH) - PRIOR SURGERIES/PROCEDURES Surgical/Procedure History: reports: appendectomy, CABG, cholecystectomy, joint replacement (total hip and total shoulder), other (Whipple, bladder surgery) - PRIOR HOSPITALIZATIONS Prior Hospitalizations: reports: for similar symptoms - IMMUNIZATION STATUS Childhood Immunizations: See Nurse Assessment Flu Vaccine: See Nurse Assessment - FAMILY HISTORY Family History: reviewed, not pertinent Physical Exam-General - PHYSICAL EXAM-ADULT Initial Vital Signs Reviewed: Yes - CONSTITUTIONAL General Appearance: alert, mild distress - EYES Eyes: PERRL/EOMI - HEAD, EARS, NOSE, MOUTH & THROAT HENMT: normocephalic/atraumatic - NECK Neck: supple - RESPIRATORY Respiratory: lungs clear - CARDIOVASCULAR Cardiovascular: regular rate, rhythm - GASTROINTESTINAL (ABDOMEN) Abdominal Exam: normal bowel sounds, soft, tenderness. negative: rigid, rebound Progress - PLAN OF CARE/RESULTS Progress/Plan/Lab Results: Vital Signs - 24 hr 02/24/17 02/24/17 17:05 17:42 Temperature 97.7 F Pulse Rate 95 H 87 Respiratory 18 18 Rate Blood Pressure 126/86 117/87 O2 Sat by Pulse 100 94 L Oximetry Laboratory Tests 02/24/17 02/24/17 02/24/17 17:25 17:25 17:25 WBC 9.27 RBC 3.08 L Hgb 8.8 L Hct 28.3 L MCV 91.9 MCH 28.6 MCHC 31.1 L RDW Std Deviation 17.6 H Plt Count 147 MPV 9.8 Immature Gran % (Auto) 0.3 Neut % (Auto) 76.2 H Lymph % (Auto) 14.5 L Walsh % (Auto) 7.2 Eos % (Auto) 1.4 Baso % (Auto) 0.4 Immature Gran # (Auto) 0.03 Neut # (Auto) 7.06 H Lymph # (Auto) 1.34 Walsh # (Auto) 0.67 H Eos # (Auto) 0.13 Baso # (Auto) 0.04 Sodium 144 Potassium 4.4 Chloride 113 H Carbon Dioxide 19 L Anion Gap 12 BUN 29 H Creatinine 2.0 H Estimated GFR/1.73 m2 32 BUN/Creatinine Ratio 15 Glucose 169 H Calculated Osmolality 297 Calcium 8.1 L Total Bilirubin 0.44 Direct Bilirubin < 0.20 AST 15 ALT 10 Alkaline Phosphatase 155 H Total Protein 6.9 Albumin 3.2 L Globulin 3.7 Albumin/Globulin Ratio 0.9 Blood Type A POSITIVE Antibody Screen NEGATIVE - CONSULTS/PCP/HOSPITALIST Notification #1 *Consult/PCP/Hospitalist*: Dr.Scott Jansen Time Discussed: 18:38 Consult Disposition: Admit Departure - Departure Time of Disposition Order: 18:37 DIAGNOSIS: Upper gastrointestinal bleed Disposition: ADMITTED INPATIENT 09 Certified Medical Emergency: Emergent Condition: Fair Referrals: None,PCP [Primary Care Provider] -
[2017-02-24 17:40] LABS: MANUAL DIFF NEEDED? NO
[2017-02-24 17:49] LABS: BASO% 0.4 % (0.0-0.8); EOS# 0.13 X1000 (0.0-0.7); EOS% 1.4 % (0.0-10.0); HEMATOCRIT 28.3 % (42.0-52.0); HEMOGLOBIN 8.8 g/dL (14.0-18.0); IMM GRAN# 0.03 X1000 (0.0-0.04); IMM GRAN% 0.3 % (0.0-0.5); LYMPH# 1.34 X1000 (1.2-3.4); LYMPH% 14.5 % (20.5-51.1); MCH 28.6 PG (27-31); MCHC 31.1 g/dL (33-37); MCV 91.9 FL (81-99); MONO# 0.67 X1000 (0.11-0.59); MONO% 7.2 % (1.7-9.3); MPV 9.8 FL (7.4-10.4); NEUT% 76.2 % (42.2-75.2); PLT 147 X1000 (130-400); RBC 3.08 XMIL (4.7-6.1)
[2017-02-24 18:25] LABS: AGAP 12; ALBUMIN 3.2 g/dL (3.5-5.0); ALKALINE PHOSPHATASE 155 U/L (32-122); BUN 29 mg/dL (8-22); CALCIUM 8.1 mg/dL (8.8-10.2); CHLORIDE 113 mmol/L (98-107); COSMO 297; DIRECT BILIRUBIN < 0.20 mg/dL (0.00-0.20); GOT 15 U/L (10-34); GPT 10 U/L (10-44); POTASSIUM 4.4 mmol/L (3.5-5.1); SODIUM 144 mmol/L (136-145); TCO2 19 mmol/L (25-35); TOTAL BILIRUBIN 0.44 mg/dL (0.20-1.00); TOTAL PROTEIN 6.9 g/dL (6.3-8.3)
[2017-02-24 18:38] LABS: INR 1.13
[2017-02-24] MEDS ORDERED: NS 1,000 ML IV SCH (20:32)
[2017-02-24] MEDS ORDERED: HUMALOG SUBQ ONE (20:32)
[2017-02-24] MEDS: SEROQUEL XR PO SCH (21:00)
[2017-02-24] MEDS: BUSPAR PO SCH (21:00)
[2017-02-24] MEDS: PROTONIX 80 MG in NS 80 ML IV SCH (21:04)
--- NOTE | 2017-02-24 21:56 | HISTORY AND PHYSICAL ---
PRIMARY CARE PHYSICIAN: Dr. Humza Christopher CHIEF COMPLAINT: Hematemesis. HISTORY OF PRESENT ILLNESS: An 86-year-old white male with a very complicated past medical history presents for evaluation of above-mentioned symptoms. Pertinent history of present illness began on January 13. At that time, patient was evaluated in clinic secondary to intractable nausea and vomiting. He was noted to have 1 episode of vomitus significant for blood clots. Full evaluation was pursued. Patient was found to have a urinary tract infection. Treatment with levofloxacin therapy was initiated. Patient did reasonably well until late December. At that time, patient developed an episode of melenic stool. Over the course of a week, patient continued to have intermittent episodes. Ultimately, patient was evaluated in the emergency department on 01/25/2017. The patient was indeed found to be Hemoccult positive. Patient was noted to have acute on chronic kidney failure with associated hypotension. Hemoglobin and hematocrit were noted to be 6.5 and 21. Patient remained admitted to [facility] from January 25 until February 01. The patient was treated for an underlying upper GI bleed, acute renal failure, hypotension, and weakness. Because of patient's multiple comorbidities, a GI evaluation was not pursued. With time, patient's hemoglobin and hematocrit stabilized. There were no further episodes of melenic stools. Patient was discharged to rehab on 01/04/2017. Since that time, patient has done reasonably well. He ultimately returned home from rehab on Wednesday. Today, patient awoke in his usual state of health. He was assisted with a shower by his caregiver. He thereafter drank Ensure and was taken to the restroom. While there, patient developed nausea. He subsequently had a significant amount of bright red vomitus. Because of this condition, EMS was contacted and patient was transported to the emergency department for further evaluation and management. Upon arrival, patient had an additional episode of bright red vomitus. Patient will be admitted to the hospital for full evaluation and management of a presumed upper GI bleed. Of note, patient denies fevers, chills, shortness of breath, chest pains, palpitations, dysuria, hematuria, or pyuria. The patient's caregiver noted a darkening of his stool this afternoon. The patient's p.o. intake otherwise has been acceptable. His dementia and weakness are slowly progressive. PAST MEDICAL HISTORY: 1. History of an abdominal wall abscess diagnosed in 2006 status post surgical intervention by Dr. Yu. 2. Multiple actinic keratoses. 3. History of coronary artery disease requiring stent placement in 2001 and coronary artery bypass grafting in 2003. 4. Right shoulder pain status post total shoulder arthroplasty in 2011. 5. History of recurrent ascending cholangitis. 6. Atrial fibrillation. 7. Frost's esophagus. 8. Bladder cancer. 9. Benign prostatic hypertrophy. 10. Mild carotid artery disease. 11. History of cholecystectomy associated with his Whipple procedure. 12. Chronic kidney disease with baseline creatinine between 1.4 and 1.7. 13. Depression. 14. Colonic diverticulosis. 15. Diabetes. 16. Insomnia. 17. Reflux disease. 18. Hypertension. 19. Hyperlipidemia. 20. Iron-deficiency anemia. 21. 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 22. Nephrolithiasis. 23. Dementia. 24. 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 25. History of stroke. CURRENT MEDICATIONS: 1. Acetaminophen 650 mg every 6 hours as needed. 2. Atenolol 25 mg daily. 3. BuSpar 10 mg at bedtime. 4. Donepezil 10 mg daily. 5. Lexapro 20 mg daily. 6. Finasteride 5 mg daily. 7. Seroquel XR 50 mg at bedtime. 8. Tamsulosin 0.4 mg daily. 9. Vitamin C 500 mg daily. 10. Calcium plus vitamin D daily. 11. Vitamin D3 2000 units daily. 12. Vitamin B12 2000 mg daily. 13. Iron sulfate 325 mg daily. 14. Glipizide 5 mg daily. 15. Lispro sliding scale with meals. 16. Creon 12,000 units 3 times daily with meals. 17. Pantoprazole 40 mg daily. 18. Simvastatin 10 mg at bedtime. 19. Vitamin E 400 mg daily. ALLERGIES: The patient is allergic to Lunesta, Phenergan, Ultram, and Zosyn. SOCIAL HISTORY: Patient denies tobacco, alcohol or illicit drug use. 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 He enjoys fishing. He is unable to exercise routinely. FAMILY HISTORY: Patient's father passed at age 78 secondary to complications of an acute myocardial infarction. Patient's mother passed at age 76 secondary to complications of a stroke. REVIEW OF SYSTEMS: A 12 point review of systems was performed. Pertinent positives and negatives noted in history present illness. PHYSICAL EXAMINATION: VITAL SIGNS: Temperature. 97.7, heart rate 87, respirations 18, blood pressure is 117/87, O2 saturation 94%. GENERAL: Elderly, no acute distress. HEENT: Normocephalic, atraumatic. Pupils equal, round, reactive to light. Extraocular muscles intact. Sclerae anicteric. Pale conjunctivae. Oral, nasopharynx clear without exudate. NECK: Supple. No lymphadenopathy. No thyromegaly. No bruits auscultated. CARDIOVASCULAR: Irregularly irregular. No significant murmurs, rubs, or gallops. PULMONARY: Clear to auscultation anteriorly. ABDOMEN: Soft, nontender, nondistended. Positive bowel sounds. EXTREMITIES: Moves all extremities well. No significant clubbing, cyanosis, or edema. NEUROLOGIC: Cranial nerves 2 through 12 grossly intact. Motor and sensory grossly intact. PSYCHOLOGIC: A pleasantly demented gentleman. LABORATORY DATA: White blood cell count 9.27, hemoglobin 8.8, hematocrit 28.3, platelet count is a 147,000, PT 12, INR is 1.13, PTT is 26. Sodium 144, potassium 4.4, chloride 113, bicarb 19 BUN 29, creatinine 2, glucose 169, calcium 8.1, total bilirubin 0.44, total protein 6.9, albumin 3.2, alkaline phosphatase 155, AST 15, ALT 10. Gastroccult was noted to be positive. ASSESSMENT AND PLAN: An 86-year-old white male with a very complicated past medical history presents with a recurrent upper gastrointestinal bleed. At last hospitalization, esophagogastroduodenoscopy evaluation was deferred secondary to patient's multiple comorbidities and high surgical risk. Unfortunately, patient has developed a recurrence despite holding anticoagulation and daily pantoprazole therapy. The patient will be admitted to the hospital for full evaluation and management. 1. Admit to intensive care unit. 2. Suspected upper gastrointestinal bleed-as above, the patient is Gastroccult positive on examination. The patient did have a witnessed episode per his caregiver. A photograph does confirm bright blood. The patient was given a dose of octreotide in the emergency department. The patient will be admitted with a Protonix drip. We will check hemoglobin and hematocrit evaluations every 4 hours. We will transfuse as needed. We will consult Dr. Porter for possible esophagogastroduodenoscopy evaluation. Patient will remain nothing per oral. 3. Acute renal failure-patient's creatinine is above his baseline. The patient will be started on a cautious, but aggressive hydration. This will be followed. 4. Profound weakness-unfortunately, this is progressive. Once patient's condition has stabilized, we will plan to initiate physical therapy. 5. Coronary artery disease-the patient has longstanding disease. We will continue to optimize patient's medical management with exception of anticoagulants. 6. Atrial fibrillation-patient is rate controlled. We will continue atenolol therapy. At this point, he is not an anticoagulation candidate. 7. Anticoagulation-patient has been treated with Xarelto and aspirin in the past. He currently is receiving no anticoagulation. 8. Depression/dementia-we will continue patient's home medications. 9. Diabetes-we will start patient on sliding-scale insulin. 10. Fluid, electrolytes, nutrition-we will monitor electrolytes. Normal saline at 75 mL an hour nothing per oral. 11. Prophylaxis-patient will be placed on Sequential Compression Devices.
[2017-02-24 22:50] LABS: URINE SOURCE CATH
[2017-02-24 23:02] LABS: BILIRUBIN URINE NEGATIVE (NEGATIVE); BLOOD URINE NEGATIVE (NEGATIVE); COLOR YELLOW; GLUCOSE URINE NEGATIVE (NEGATIVE); LEUKOCYTES URINE TRACE (NEGATIVE); NITRITE URINE NEGATIVE (NEGATIVE); PH URINE 5.5; PROTEIN URINE 30 mg/dL (NEGATIVE); SP GRAVITY URINE 1.018; TURBIDITY URINE CLEAR (CLEAR); UROBILINOGEN URINE NORMAL (NORMAL)
[2017-02-24 23:04] LABS: URINE MICRO REVIEW NEEDED? YES
[2017-02-24 23:05] LABS: UR EPITHELIAL CELLS <10 /HPF (<10); URINE BACTERIA 1+ /HPF; URINE CULTURE NEEDED? YES; URINE RBC <10 /HPF (<10); URINE WBC <10 /HPF (<10)
[2017-02-24 23:10] LABS: URINE CASTS NONE SEEN; URINE CRYSTALS NONE SEEN; URINE SMALL ROUND CELLS NONE SEEN
[2017-02-25 05:35] LABS: HEMATOCRIT 26.2 % (42.0-52.0); HEMOGLOBIN 8.1 g/dL (14.0-18.0)
[2017-02-25 05:49] LABS: ALBUMIN 2.9 g/dL (3.5-5.0); POTASSIUM 4.5 mmol/L (3.5-5.1); TOTAL BILIRUBIN 0.75 mg/dL (0.20-1.00)
[2017-02-25] MEDS: PROTONIX 80 MG in NS 80 ML IV SCH (06:11)
--- NOTE | 2017-02-25 07:27 | Diag Imaging Result Document ---
PROCEDURE NAME: CHEST-PORTABLE - 02/25/2017 SINGLE FRONTAL RADIOGRAPH OF THE CHEST: COMPARISON: 02/01/2017. FINDINGS: The patient is rotated toward the right. The lungs appear to be clear. There is no definite pleural fluid collection. CABG changes are noted. Cardiac silhouette and central vasculature are grossly unremarkable, otherwise. IMPRESSION: No definite acute pathology.
[2017-02-25] MEDS: LEXAPRO PO SCH (08:22)
[2017-02-25] MEDS: FLOMAX PO SCH (08:22)
[2017-02-25] MEDS: TENORMIN PO SCH (08:23)
[2017-02-25] MEDS: 1/2 NS 1,000 ML IV SCH ×2 (08:23→23:08)
[2017-02-25] MEDS: PROSCAR PO SCH (08:23)
[2017-02-25] MEDS: ARICEPT PO SCH (08:23)
[2017-02-25 10:22] LABS: HEMATOCRIT 25.3 % (42.0-52.0); HEMOGLOBIN 7.8 g/dL (14.0-18.0)
[2017-02-25] MEDS: NS 250 ML IV SCH (13:09)
[2017-02-25] MEDS ORDERED: MYLICON DROPS (DOSE) MISC ONE (14:09)
[2017-02-25] MEDS ORDERED: DIPRIVAN 1% ONE (14:59)
[2017-02-25] MEDS ORDERED: LR 1,000 ML ONE (15:12)
[2017-02-25] MEDS ORDERED: XYLOCAINE-MPF 2% ONE (15:12)
[2017-02-25] MEDS ORDERED: ANESTHESIA PB SET 88 IN 5742 ONE (15:22)
--- NOTE | 2017-02-25 15:43 | OPERATIVE NOTE ---
PROCEDURE DATE: 02/25/2017 PROCEDURE PERFORMED: Esophagogastroduodenoscopy. PROVIDER: Papo Porter MD PREOPERATIVE DIAGNOSES: 1. Acute bleed. 2. Anemia secondary to gastrointestinal bleed. POSTOPERATIVE DIAGNOSIS: Surgical changes in the stomach, suggestive of gastrectomy and gastroenterostomy, otherwise normal esophagogastroduodenoscopy. HISTORY: This is an 86-year-old gentleman, admitted to the hospital with episodes of GI bleeding. His hemoglobin and hematocrit dropped, requiring blood transfusion. Endoscopy was done for diagnostic as well as therapeutic purposes. Informed consent obtained from the patient's family member, his . The procedure risks, benefits, and alternatives were explained in layman's terms. She understood and all pertinent questions were answered. DESCRIPTION OF PROCEDURE: The patient was brought to the endoscopy unit and was premedicated as per Anesthesia. After adequate sedation, while he was lying in the left lateral position, the gastroscope was introduced into the posterior pharynx and advanced under direct vision into the esophagus. The esophagus in its entire length appeared to be normal. No esophagitis, webs, rings, or varices were seen. No evidence of active bleeding or stigmata of recent bleed seen. The scope was then passed through the esophagus into the stomach. The stomach was examined both in straight and retroflexed view, which revealed surgical changes suggestive of gastrectomy and gastroenterostomy. Again, I did not see any evidence of active bleeding or stigmata of recent bleed. I was able to advance the scope into the small bowel as far as I could and I did not see any evidence of active bleeding or stigmata of recent bleed. The scope was removed. The patient tolerated procedure with no complications noted. The patient was then transferred to the recovery area in stable condition. IMPRESSION: 1. Acute gastrointestinal bleed and anemia secondary to gastrointestinal bleed. 2. Surgical changes suggestive of gastrectomy and gastroenterostomy. 3. Otherwise normal esophagogastroduodenoscopy. 4. No evidence of active bleeding. RECOMMENDATIONS: I would continue hemodynamic resuscitation and observe in the hospital. Will start him on a full liquid diet, recheck hemoglobin and hematocrit, and the transfuse if necessary. In the meantime, we will have to discuss about possibility of colonoscopy. At his age, with his mental status, it will be hard to prepare him for colonoscopy. We will decide, according to the wishes of family members as well as after discussion with Dr. Christopher. [facility] [place] DIVISIONMaricruz
[2017-02-25 17:56] LABS: HEMATOCRIT 27.6 % (42.0-52.0); HEMOGLOBIN 8.5 g/dL (14.0-18.0)
[2017-02-25] MEDS: BUSPAR PO SCH (21:43)
[2017-02-25] MEDS: SEROQUEL XR PO SCH (21:43)
[2017-02-25 21:58] LABS: HEMATOCRIT 26.9 % (42.0-52.0); HEMOGLOBIN 8.5 g/dL (14.0-18.0)
[2017-02-26 01:24] LABS: HEMATOCRIT 26.8 % (42.0-52.0); HEMOGLOBIN 8.3 g/dL (14.0-18.0)
[2017-02-26] MEDS: NS 250 ML IV SCH ×3 (02:52→23:04)
--- NOTE | 2017-02-26 04:03 | PROGRESS NOTE ---
DATE: 02/25/2017 SUBJECTIVE: This morning, the patient's overall character remains unchanged. The patient required a transfusion overnight secondary to a gradual decline in hemoglobin and hematocrit. This morning, patient felt reasonably well. He remained confused. Vital signs were stable. The patient was taken for an EGD this early afternoon. No definitive etiology of bleeding was identified. Since that time, patient has had 2 additional large bloody bowel movements. The patient has required 1 additional transfusion. He denies fevers, chills, nausea, vomiting, shortness of breath, or chest discomfort. OBJECTIVE: Vital Signs: T-max 97.3, heart rate 62-91, respirations 18-28, blood pressure 124 to 140 over 72 to 103. General: Elderly. No acute distress. Cardiovascular: Irregularly irregular. No significant murmurs, rubs, or gallops. Pulmonary: Clear to auscultation anteriorly. Abdomen: Soft, nontender, nondistended. Positive bowel sounds. Extremities: Moves all extremities well. No significant clubbing, cyanosis, or edema. Dermatologic: Evaluation reveals no evidence of rash. LABORATORY DATA: Sodium 146, potassium 4.5, chloride 115, bicarb 19, BUN 31, creatinine 1.9, glucose 95, calcium 8.0, total bilirubin 0.75, total protein 6.0, albumin 2.9, alkaline phosphatase 125, AST 14, ALT 9. ASSESSMENT AND PLAN: 1. Gastrointestinal bleed - Originally, I suspected this was upper gastrointestinal in etiology. Esophagogastroduodenoscopy, however, revealed no evidence of acute bleed. This raises concern that this may be secondary to a small intestine bleed. Colonic source certainly could also be playing a role, however, I do not expect it would have caused hematemesis upon admission. For now, because of risk factors for a colonoscopy and bowel prep is significant, we will continue supportive care for now. We will re-evaluate in the morning and determine if attempting a colonic prep is appropriate. 2. Acute renal failure - Patient's creatinine improved slightly from yesterday. We will continue hydration. 3. Hypernatremia - We will transition patient from normal saline to half-normal saline. 4. Profound weakness - I am very concerned in this regard. He just completed rehabilitations. Once able, we will plan to start physical therapy. 5. Coronary artery disease - The patient has longstanding disease. We will remain aware. 6. Atrial fibrillation - Patient is rate controlled. At this point, he is not a candidate for anticoagulation. 7. Anticoagulation - Patient's Xarelto and aspirin have been held. Unfortunately, it does appear patient received Aleve and aspirin at home. We will ask family to avoid all anticoagulants and antiplatelet agents in the near future. 8. Depression/anxiety - We will continue home medications. 9. Diabetes - We will continue patient on home medications. 10. Fluid, electrolytes, nutrition - We will monitor electrolytes. Normal saline at 75 mL an hour. NPO prophylaxis. Patient will be placed on sequential compression devices.
[2017-02-26 04:53] LABS: HEMATOCRIT 25.5 % (42.0-52.0)
[2017-02-26 05:08] LABS: ALBUMIN 2.7 g/dL (3.5-5.0); CALCIUM 7.6 mg/dL (8.8-10.2); POTASSIUM 3.8 mmol/L (3.5-5.1); TOTAL BILIRUBIN 0.58 mg/dL (0.20-1.00); TOTAL PROTEIN 5.9 g/dL (6.3-8.3)
[2017-02-26] MEDS: PRILOSEC PO SCH (06:19)
[2017-02-26] MEDS: ARICEPT PO SCH (08:44)
[2017-02-26] MEDS: LEXAPRO PO SCH (08:44)
[2017-02-26] MEDS: PROSCAR PO SCH (08:44)
[2017-02-26] MEDS: FLOMAX PO SCH (08:44)
[2017-02-26] MEDS: TENORMIN PO SCH (08:44)
[2017-02-26 10:41] LABS: HEMATOCRIT 27.7 % (42.0-52.0); HEMOGLOBIN 8.5 g/dL (14.0-18.0)
[2017-02-26] MEDS: 1/2 NS 1,000 ML IV SCH ×2 (11:55→23:04)
--- NOTE | 2017-02-26 13:59 | Diag Imaging Result Document ---
PROCEDURE NAME: CHEST/ABD TUBE PLACEMENT - 02/26/2017 CHEST AND ABDOMEN, PORTABLE, AT 1330 HOURS.: NG tube placement. FINDINGS: The NG tube is coiled in the fundus of the stomach. IMPRESSION: NG tube in the stomach.
[2017-02-26] MEDS ORDERED: GOLYTELY PO ONE (14:00)
[2017-02-26 14:42] LABS: HEMATOCRIT 20.1 % (42.0-52.0)
--- NOTE | 2017-02-26 14:45 | PROGRESS NOTE ---
DATE: 02/26/2017 SUBJECTIVE: Patient's sitter states he had a large bloody stool today. Vital signs are stable per nurse report. There were noted clots in the stool. He has had a total of 2 units of packed red blood cells. OBJECTIVE: Vital Signs: Temperature 97.2 degrees, pulse 74, respirations 23, blood pressure 117/71. General: Patient is awake. He does have dementia. Sitter is at the bedside. Respiratory: Lung sounds essentially clear. Abdomen: Soft, nontender. Positive bowel sounds. Cardiovascular: Irregular rate. DIAGNOSTIC RESULTS: Laboratory: Hemoglobin 8.5, hematocrit 27.7. Chemistry: Sodium 138, potassium 3.8, chloride 107, CO2 of 19, BUN 21, creatinine 1.4, glucose 108. ASSESSMENT AND PLAN: Gastrointestinal bleed. EGD done yesterday did not show any evidence of active bleeding. He has continued to have several bloody stools with noted clots. I have talked with the , who is at home sick, about the options of proceeding with a colonoscopy or waiting to see how we did over the weekend. After discussion with the , she would prefer to go ahead and proceed with colonoscopy to see if we can find the source of bleeding. We will have to put an NG tube in for the colon preparation. That will be ordered and, after NG tube placement confirmed, we will start GoLYTELY preparation and plan for colonoscopy later this evening. I have discussed the risks and benefits of the procedure with the family and they wish to proceed. I have discussed this case with Dr. Porter. Other plans will be made according to findings. Continue to monitor hemoglobin and hematocrit. Monitor for any further active bleeding and transfuse packed red blood cells as needed. Dictated by MARY ANN Montero for Papo Porter MD cc: MARY ANN Pickard MD Scott A. Matthews, MD
[2017-02-26] MEDS ORDERED: MYLICON DROPS (DOSE) MISC ONE (18:12)
[2017-02-26] MEDS ORDERED: VERSED ONE (19:14)
[2017-02-26] MEDS ORDERED: DIPRIVAN 1% ONE (19:14)
[2017-02-26 20:04] LABS: HEMATOCRIT 29.2 % (42.0-52.0); HEMOGLOBIN 9.2 g/dL (14.0-18.0)
--- NOTE | 2017-02-26 20:08 | OPERATIVE NOTE ---
PROCEDURE DATE: 02/26/2017 PROCEDURE: Colonoscopy. PREOP DIAGNOSES: 1. Gastrointestinal bleed. 2. Anemia secondary to gastrointestinal bleed. POSTOPERATIVE DIAGNOSIS: Diverticulosis and surgical changes otherwise no active bleeding noted. HISTORY: This is an 86-year-old gentleman admitted to hospital with GI bleed. He has had multiple episodes of bleeding resulting in anemia requiring blood transfusion. EGD done earlier did not show any pathology that would explain his bleeding and anemia. Colonoscopy was done to rule out lower GI pathology resulting in his symptoms. DESCRIPTION OF PROCEDURE: Informed consent obtained from the patient as well as the family member, his . After getting consent from his family member the patient was brought to the endoscopy unit and was premedicated as per Anesthesia. After adequate sedation while he was lying in left lateral position, digital rectal exam was performed, which was normal. The scope was then gently introduced into the rectum and advanced under direct vision through the parts of colon, all the way up to the anastomosis. Vigorous irrigation and suctioning was employed to cleanse the area to visualize. There was some scattered old blood seen throughout the colon predominantly in the sigmoid colon and in the area for anastomosis. Even after cleansing the area I did not see any evidence of active bleeding or oozing. Retroflexed view of rectum revealed no pathology either. A couple of strips were made up to the anastomosis and back again did not find any evidence of active bleeding. The scope was then removed. Patient tolerated the procedure well. No complications noted. Patient was then transferred to the recovery area in a stable condition. IMPRESSION: Diverticulosis, surgical changes, otherwise no evidence of active bleeding but there was some altered blood seen in patches throughout the colon most likely from the old bleeding earlier. RECOMMENDATION: I would continue to recheck hemoglobin and hematocrit and transfuse if necessary. In the meantime, possibility of small-bowel pathology is there, bleeding scan would be 1 option to identify the spot and embolization through interventional radiologist is also 1 of the options that can be entertained. I have explained findings and plan to patient's family member. They understood. All the pertinent questions answered. cc: MD Humza Tompkins MD
[2017-02-26] MEDS: BUSPAR PO SCH (20:17)
[2017-02-26] MEDS: SEROQUEL XR PO SCH (20:17)
--- NOTE | 2017-02-26 20:57 | PROGRESS NOTE ---
DATE: 02/26/2017 SUBJECTIVE: Unfortunately, patient continues to experience episodes of bright red blood per rectum. Patient has required additional transfusions. His vital signs have been stable. There has been no evidence of fevers or chills. He is tolerating a liquid diet. Because of patient's progressive symptoms, Dr. Porter placed an NG-tube for colonic prep. Patient tolerated this well. The colonoscopy revealed no definitive source of bleeding. OBJECTIVE: Vital Signs: T-max 98.4 degrees, heart rate 82-94, respirations 20-24, blood pressure 117-134/71-92. General: Elderly, in no acute distress. Cardiovascular: Irregularly irregular. No significant murmurs, rubs, or gallops. Pulmonary: Clear to auscultation anteriorly. Abdomen: Soft, nontender, nondistended. Positive bowel sounds. Extremities: Moves all extremities well. No significant clubbing, cyanosis, or edema. Dermatologic: Evaluation reveals no evidence of rash. LABORATORY DATA: Sodium 138, potassium 3.8, chloride 107, bicarb 19, BUN 21, creatinine 1.4. Glucose 108, calcium 7.6, total bilirubin 0.58, total protein 5.9, albumin 2.7, alkaline phosphatase 107, AST 14, ALT 7, serial hemoglobin and hematocrit have been monitored. ASSESSMENT AND PLAN: 1. Gastrointestinal bleed - Unfortunately, patient's EGD and colonoscopy both returned as negative. This suggests a small bowel etiology. At this point, with multiple comorbidities and high surgical risk, conservative measures are most appropriate. We will continue to transfuse patient as needed. Should he continue to experience bleeding, we will consider a bleeding scan versus Interventional Radiology consultation. I discussed this case in detail with patient's . Consideration for hospice care is also being pursued. 2. Acute renal failure - Patient's creatinine has improved with volume resuscitation. 3. Hypernatremia - Patient was changed from normal saline to half-normal saline. His sodium level has stabilized. 4. Profound weakness - Unfortunately, this is progressive. Once able, we will plan to pursue physical therapy. 5. Coronary artery disease - The patient has longstanding disease. We will remain aware. 6. Atrial fibrillation - Patient is rate controlled. He is not a candidate for anticoagulation. 7. Anticoagulation - As above, all anticoagulants have been held. 8. Depression/anxiety - We will continue patient's home medications. 9. Diabetes - We will continue home medications and monitor with sliding scale. 10. Disposition - At this point, patient continues to require assisted care in a hospital setting. We will plan discharge home once appropriate. cc: Humza Christopher MD
[2017-02-26 21:53] LABS: HEMATOCRIT 27.7 % (42.0-52.0); HEMOGLOBIN 8.9 g/dL (14.0-18.0)
[2017-02-27] MEDS: LEXAPRO PO SCH (09:20)
[2017-02-27] MEDS: FLOMAX PO SCH (09:20)
[2017-02-27] MEDS: TENORMIN PO SCH (09:20)
[2017-02-27] MEDS: PRILOSEC PO SCH (09:20)
[2017-02-27] MEDS: ARICEPT PO SCH (09:20)
[2017-02-27] MEDS: PROSCAR PO SCH (09:20)
--- NOTE | 2017-02-27 14:19 | PROGRESS NOTE ---
DATE: 02/27/2017 SUBJECTIVE: Yesterday, patient had a colonoscopy performed secondary to persistent bright red blood per rectum requiring multiple transfusions. Colonoscopy revealed only diverticulosis, but no evidence of active bleeding. Patient's postprocedure course has been largely uncomplicated. Patient continues to have loose stools, but there has been no further evidence of bleeding. Patient's hemoglobin and hematocrit at present time are stable. His vital signs are stable. He denies nausea, vomiting, shortness of breath, or chest discomfort. He remains bedbound and is severely deconditioned. OBJECTIVE: Temperature max 98.4, heart rate 74 to 94, respirations 17 to 24, blood pressure 117 to 139 over 71 to 92. General: Chronically ill appearing. No acute distress. Cardiovascular: Irregularly irregular. No significant murmurs, rubs, or gallops. Pulmonary: Clear to auscultation anteriorly. Abdomen: Soft, nontender, nondistended, positive bowel sounds. Extremities: Moves all extremities well. No significant clubbing, cyanosis, or edema. Dermatologic: Evaluation reveals no evidence of rash. LABORATORY DATA: White blood cell count 9.24, hemoglobin 9.7, hematocrit 29.3. Platelet count is 89,000. ASSESSMENT AND PLAN: 1. Gastrointestinal bleed--Patient's esophagogastroduodenoscopy and colonoscopy both returned negative. This would suggest a small-bowel pathology. At this point, because of multiple comorbidities and high surgical risk, conservative measures have been pursued. Patient's hemoglobin and hematocrit have been stable after colonoscopy. We will continue to follow serial blood draws. We will transfuse as necessary. Should further evaluation be warranted, we will consider a bleeding scan versus Interventional Radiology consultation. 2. Acute renal failure--Patient's creatinine has improved with volume resuscitation. We will repeat a BUN and creatinine in the morning. 3. Hypernatremia--Patient's sodium level had stabilized as of yesterday. We will recheck a sodium level in the morning. 4. Profound weakness--Unfortunately, this is significant. Once his bleeding has stabilized, we will plan to initiate physical therapy. 5. Coronary artery disease--Patient has longstanding disease. We will remain aware. 6. Atrial fibrillation--Patient is rate controlled. 7. Anticoagulation--Unfortunately, patient is not an anticoagulation candidate. We will continue supportive care. 8. Depression/anxiety--We will continue home medications. 9. Diabetes--We will continue to monitor patient's blood sugars with sliding scale insulin. 10. Disposition--At this point, patient continues to require penitentiary care in the hospital setting. We will plan discharge home once appropriate. cc: Humza Christopher MD
[2017-02-27] MEDS: 1/2 NS 1,000 ML IV SCH ×2 (15:45→16:45)
[2017-02-27 17:44] LABS: HEMATOCRIT 29.4 % (42.0-52.0); HEMOGLOBIN 9.4 g/dL (14.0-18.0)
[2017-02-27] MEDS ORDERED: PROTONIX IV SCH (21:00)
[2017-02-27] MEDS: BUSPAR PO SCH (21:00)
[2017-02-27] MEDS: SEROQUEL XR PO SCH (21:00)
[2017-02-27 23:57] LABS: HEMATOCRIT 32.1 % (42.0-52.0); HEMOGLOBIN 10.2 g/dL (14.0-18.0)
[2017-02-28 01:37] LABS: HEMATOCRIT 27.3 % (42.0-52.0); HEMOGLOBIN 8.9 g/dL (14.0-18.0)
[2017-02-28 01:50] LABS: HEMATOCRIT 29.4 % (42.0-52.0); HEMOGLOBIN 9.6 g/dL (14.0-18.0)
[2017-02-28 02:26] LABS: HEMOGLOBIN 9.6 g/dL (14.0-18.0)
[2017-02-28 02:30] LABS: HEMATOCRIT 29.3 % (42.0-52.0); HEMOGLOBIN 9.7 g/dL (14.0-18.0)
[2017-02-28 02:31] LABS: HEMATOCRIT 24.9 % (42.0-52.0)
[2017-02-28 05:18] LABS: HEMATOCRIT 27.6 % (42.0-52.0)
[2017-02-28 05:33] LABS: ALBUMIN 2.7 g/dL (3.5-5.0); POTASSIUM 3.8 mmol/L (3.5-5.1); TOTAL BILIRUBIN 0.77 mg/dL (0.20-1.00)
[2017-02-28] MEDS: PRILOSEC PO SCH (06:51)
[2017-02-28] MEDS: FLOMAX PO SCH (08:07)
[2017-02-28] MEDS: PROSCAR PO SCH (08:07)
[2017-02-28] MEDS: TENORMIN PO SCH (08:07)
[2017-02-28] MEDS: LEXAPRO PO SCH (08:07)
[2017-02-28] MEDS: ARICEPT PO SCH (08:07)
[2017-02-28] MEDS: 1/2 NS 1,000 ML IV SCH (08:07)
[2017-02-28 08:43] LABS: HEMATOCRIT 27.7 % (42.0-52.0); HEMOGLOBIN 8.9 g/dL (14.0-18.0)
--- NOTE | 2017-02-28 14:30 | Diag Imaging Result Document ---
PROCEDURE NAME: CHEST-1 VIEW - 02/28/2017 PORTABLE CHEST: COMPARISON: 02/25/2017. FINDINGS: Heart size appears the upper range of normal. There are sternal wires from previous surgery again seen. There is mild hazy atelectasis or edema at the lung bases. There is no dense consolidation, gross vascular congestion, substantial pleural effusion, or pneumothorax identified. IMPRESSION: Mild hazy atelectasis or edema at bilateral lung bases.
--- NOTE | 2017-02-28 15:04 | PROGRESS NOTE ---
DATE: 02/28/2017 SUBJECTIVE: Overall, patient states he is doing reasonably well. Over the course of the last 24 hours, patient has experienced no episodes of hematochezia. His hemoglobin and hematocrit have remained stable. His confusion is at baseline. His vital signs have been acceptable. Within the last 12 hours, patient has developed some cough and congestion. His cough is intermittently productive of a purulent sputum. There has been no evidence of fevers and chills. His p.o. intake has decreased. OBJECTIVE: VITAL SIGNS: Temperature maximum 99.2 degrees, heart rate 87-100, respirations 23-31. Blood pressure 131-141/72-84.General: Elderly, no acute distress. Cardiovascular: Irregularly irregular. No significant murmurs, rubs, or gallops. Pulmonary: Clear to auscultation anteriorly. Abdomen: Soft, nontender, nondistended. Positive bowel sounds. Extremities: Moves all extremities well. No significant clubbing, cyanosis, or edema. Dermatologic: Evaluation reveals no evidence of rash. LABORATORY DATA: Sodium 138, potassium 3.8, chloride 107, bicarb 20, BUN 12, creatinine 1.4, glucose 130, calcium 8, total bilirubin 0.77, total protein 6, albumin 2.7, alkaline phosphatase 128, AST 24, ALT 11. Hemoglobin 8.9, hematocrit 27.7. ASSESSMENT AND PLAN: 1. Gastrointestinal bleed-Esophagogastroduodenoscopy and colonoscopy returned negative suggesting a small bowel pathology. At this point, the risk of further intervention outweighs the benefits. With conservative measures, bleeding has discontinued. We will continue to follow this. 2. Acute renal failure-patient has achieved improvement with volume resuscitation. 3. Hypernatremia-patient has achieved improvement with changing from normal saline to half-normal saline. We will follow this. 4. Profound weakness-if the patient continues to improve without evidence of hematochezia, we will initiate physical therapy tomorrow. This will be followed. 5. Coronary artery disease-patient has known disease. We will follow this, and we will continue his home regimen. 6. Atrial fibrillation/anticoagulation-patient has persistent atrial fibrillation. He is rate controlled. At this point, he is not a candidate for anticoagulation secondary to recurrent gastrointestinal bleed. 7. Depression/anxiety/dementia-we will continue home medications as his symptoms are reasonably controlled. 8. Diabetes-we will continue to follow patient with sliding scale insulin. 9. Cough and congestion-I suspect this represents an acute viral upper respiratory infection. The patient has had a significant exposure in his . We will check a chest x-ray. We will continue aspiration precautions. We will check a complete blood count in the morning. At this point, we will hold off on antibiotic coverage. 10. Disposition-at this point, patient continues to require detention care in the hospital setting. We will plan discharge home once appropriate. cc: Humza Christopher MD
[2017-02-28 15:11] LABS: HEMOGLOBIN 8.8 g/dL (14.0-18.0)
[2017-02-28 19:15] LABS: HEMATOCRIT 27.9 % (42.0-52.0); HEMOGLOBIN 8.9 g/dL (14.0-18.0)
[2017-02-28] MEDS: BUSPAR PO SCH ×2 (20:16→20:27)
[2017-02-28] MEDS: ZOFRAN IV PRN (20:27)
[2017-02-28] MEDS: SEROQUEL XR PO SCH (20:27)
[2017-02-28 22:45] LABS: HEMATOCRIT 24.6 % (42.0-52.0)
[2017-03-01 02:17] LABS: HEMATOCRIT 25.1 % (42.0-52.0)
[2017-03-01] MEDS: ZOFRAN IV PRN ×3 (05:04→20:23)
[2017-03-01] MEDS: PRILOSEC PO SCH (06:05)
[2017-03-01 06:27] LABS: MANUAL DIFF NEEDED? NO
[2017-03-01 06:38] LABS: BASO% 0.2 % (0.0-0.8); EOS# 0.01 X1000 (0.0-0.7); EOS% 0.2 % (0.0-10.0); HEMATOCRIT 26.8 % (42.0-52.0); HEMOGLOBIN 8.5 g/dL (14.0-18.0); LYMPH# 1.08 X1000 (1.2-3.4); LYMPH% 21.6 % (20.5-51.1); MCH 28.2 PG (27-31); MCHC 31.7 g/dL (33-37); MONO# 0.77 X1000 (0.11-0.59); MONO% 15.4 % (1.7-9.3); MPV 10.5 FL (7.4-10.4); NEUT% 62.6 % (42.2-75.2); PLT 79 X1000 (130-400); RBC 3.01 XMIL (4.7-6.1)
[2017-03-01 07:03] LABS: ALBUMIN 2.6 g/dL (3.5-5.0); CALCIUM 7.7 mg/dL (8.8-10.2); POTASSIUM 3.7 mmol/L (3.5-5.1); TOTAL BILIRUBIN 0.58 mg/dL (0.20-1.00)
[2017-03-01] MEDS: ARICEPT PO SCH (08:48)
[2017-03-01] MEDS: LEXAPRO PO SCH (08:48)
[2017-03-01] MEDS: PROSCAR PO SCH (08:48)
[2017-03-01] MEDS: FLOMAX PO SCH (08:48)
[2017-03-01] MEDS: 1/2 NS 1,000 ML IV SCH (08:49)
[2017-03-01] MEDS: TENORMIN PO SCH (09:53)
[2017-03-01 11:31] LABS: HEMATOCRIT 25.7 % (42.0-52.0); HEMOGLOBIN 8.1 g/dL (14.0-18.0)
[2017-03-01] MEDS ORDERED: FENTANYL ONE (14:33)
[2017-03-01] MEDS ORDERED: DIPRIVAN 1% ONE (14:33)
[2017-03-01 14:45] LABS: HEMATOCRIT 24.6 % (42.0-52.0); HEMOGLOBIN 7.8 g/dL (14.0-18.0)
[2017-03-01] MEDS ORDERED: NS 1,000 ML ONE (15:01)
[2017-03-01] MEDS ORDERED: XYLOCAINE-MPF 2% ONE (15:01)
--- NOTE | 2017-03-01 15:23 | OPERATIVE NOTE ---
PROCEDURE DATE: 03/01/2017 PROCEDURE: Esophagogastroduodenoscopy and push enteroscopy. PREOPERATIVE DIAGNOSES: 1. Acute gastrointestinal bleed. 2. Anemia secondary to gastrointestinal bleed. POSTOPERATIVE DIAGNOSIS: Surgical changes in the stomach with no evidence of active bleeding all the way up to the small bowel. HISTORY: This is an 86-year-old gentleman who has been in the hospital with GI bleed. Earlier EGD and colonoscopy did not reveal any pathology. Push enteroscopy was done to check for the cause of his bleeding. DESCRIPTION OF PROCEDURE: Informed consent was obtained from the patient's . The procedure, risks, benefits, alternatives were explained in layman's terms. She understood. All the pertinent questions were answered. Patient was brought to the endoscopy unit and was premedicated as per Anesthesia. After adequate sedation, while he was lying in left lateral position, the gastroscope was introduced into the posterior pharynx and advanced under direct vision into the esophagus. Esophagus in its entire length appeared to be normal. No esophagitis, webs, rings, varices were seen. Scope was then passed through the esophagus in the stomach. 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 As far as I could, I even reached the second small bowel anastomosis in the ileum and again I did not see any pathology, no evidence of active bleeding or even stigmata of recent bleed seen. I did not see any backwash of blood or altered blood into the small bowel. The scope was withdrawn. Patient tolerated the procedure no complications noted. Patient was then transferred to the recovery area in a stable condition. IMPRESSION: 1. Acute gastrointestinal bleed, unknown source. 2. Anemia secondary to gastrointestinal bleed, requiring transfusion. RECOMMENDATIONS: At this point, I would continue to recheck hemoglobin and hematocrit, transfuse if necessary and after discussion with his , it appeared that she wants everything to be done for him. I have discussed the case with Dr. Velasquez and help from intervention radiology will be least of invasive measures that can address by embolization of the area where he is bleeding from after identification. I will discuss the case with Dr. Velasquez and further plans made. cc: MD Humza Tompkins MD [facility]
[2017-03-01] MEDS ORDERED: NS 250 ML ONE (16:42)
[2017-03-01] MEDS: SEROQUEL XR PO SCH (20:23)
[2017-03-01] MEDS: BUSPAR PO SCH (20:23)
[2017-03-01 21:31] LABS: HEMATOCRIT 29.4 % (42.0-52.0); HEMOGLOBIN 9.3 g/dL (14.0-18.0)
--- NOTE | 2017-03-01 22:49 | PROGRESS NOTE ---
DATE: 03/01/2017 SUBJECTIVE: Unfortunately, over the course of the last 24 hours, patient has continued to experience intermittent episodes of hematochezia and melena. He has been followed with q.4 hour hemoglobin and hematocrit evaluations. As previously noted, patient has had a negative EGD and colonoscopy. Because of persistent bleeding, patient was taken for a push endoscopy today. Once again, a definitive etiology of bleeding was not identified. The patient otherwise remained reasonably stable. His vital signs are stable. His p.o. intake is marginal. He continues to have significant weakness with associated deconditioning. Patient remains confused at baseline. OBJECTIVE: vital signs: T-max 98.8 degrees, heart rate 69 to 95, respirations 13 to 30, blood pressure 104 to 169/58 to 88. General: Chronically ill appearing, no acute distress. Cardiovascular: Irregularly irregular. No significant murmurs, rubs, or gallops. Pulmonary: Clear to auscultation anteriorly. Abdomen: Soft, nontender, nondistended. Positive bowel sounds. Extremities: Moves all extremities well. No significant clubbing, cyanosis, or edema. Dermatologic: Evaluation reveals no evidence of rash. LABORATORY DATA: White blood count 4.9, hemoglobin 8.5, hematocrit 26.8, platelet count 79,000. Sodium 137, potassium 3.7, chloride 104, bicarb 22, BUN 17, creatinine 1.6, glucose 123, calcium 7.7, total bilirubin 0.58, total protein 6.0, albumin 2.6, alkaline phosphatase 145. AST 32, ALT 15. ASSESSMENT/PLAN: 1. Gastrointestinal bleed-EGD, push endoscopy, and colonoscopy all returned negative. I have discussed case with Dr. Porter. At this point, if patient's bleeding continues, we will need to consider interventional radiology intervention. We will continue supportive care for now. 2. Acute renal failure-patient has achieved improvement with volume resuscitation. 3. Hyponatremia-patient has achieved improvement with changing from normal saline to half-normal saline. 4. Profound weakness-unfortunately, this is progressive. With his persistent bleeding, I am concerned that this will for further progress. The question is raised whether the patient will be able to effectively recover from this illness. For now, we will continue supportive care. 5. Coronary artery disease-the patient has longstanding disease. We will continue his home regimen. 6. Atrial fibrillation/anticoagulation-patient is rate controlled. At this point, anticoagulation is contraindicated. 7. Depression/anxiety/dementia-the patient has advanced disease. We will continue his current regimen. 8. Diabetes-we will continue patient on sliding scale insulin. 9. Cough-the patient's cough is stable. The patient has had a significant exposure prior to hospitalization for upper respiratory illness. We will continue supportive care. 10. Disposition-at this point, patient continues to require fpc care in the hospital setting. We will plan discharge home once appropriate. cc: Humza Christopher MD
[2017-03-02 01:23] LABS: HEMATOCRIT 28.7 % (42.0-52.0); HEMOGLOBIN 9.3 g/dL (14.0-18.0)
[2017-03-02 04:29] LABS: HEMATOCRIT 28.2 % (42.0-52.0)
[2017-03-02] MEDS: PRILOSEC PO SCH (06:10)
[2017-03-02 08:12] LABS: HEMATOCRIT 28.8 % (42.0-52.0); HEMOGLOBIN 9.3 g/dL (14.0-18.0)
[2017-03-02] MEDS: TENORMIN PO SCH (08:50)
[2017-03-02] MEDS: LEXAPRO PO SCH (08:50)
[2017-03-02] MEDS: PROSCAR PO SCH (08:51)
[2017-03-02] MEDS: ARICEPT PO SCH (08:51)
[2017-03-02] MEDS: FLOMAX PO SCH (08:51)
[2017-03-02] MEDS: 1/2 NS 1,000 ML IV SCH (08:51)
[2017-03-02 12:04] LABS: HEMOGLOBIN 9.1 g/dL (14.0-18.0)
[2017-03-02] MEDS ORDERED: SODIUM CHLORIDE 0.9% 10 ML ONE (12:07)
[2017-03-02] MEDS: ZOFRAN IV PRN ×2 (12:10→17:29)
[2017-03-02 16:43] LABS: HEMATOCRIT 28.3 % (42.0-52.0); HEMOGLOBIN 8.9 g/dL (14.0-18.0)
[2017-03-02] MEDS: BUSPAR PO SCH (20:29)
[2017-03-02] MEDS: SEROQUEL XR PO SCH (20:29)
--- NOTE | 2017-03-02 22:15 | PROGRESS NOTE ---
DATE: 03/02/2017 SUBJECTIVE: The patient's overall condition is largely unchanged from yesterday. Patient continues to exhibit signs of profound weakness. His confusion is slightly above his baseline. Over the last 24 hours his hemoglobin and hematocrit are largely unchanged. This evening patient had a bowel movement which was described as brown rather than bloody. He has had no recurrence of fever, chills, nausea, vomiting, shortness of breath or chest discomfort. OBJECTIVE: Vital signs: T-max 98.5 degrees, heart rate 59-95, respirations 12-26, blood pressure 81-147 over 51-64. General: Elderly, chronically ill appearing in no acute distress. Cardiovascular: Irregularly irregular. No significant murmurs, rubs, or gallops. Pulmonary: Clear to auscultation anteriorly. Abdomen: Soft, nontender, nondistended. Positive bowel sounds. Extremities: Moves all extremities well. No significant clubbing, cyanosis, or edema. Dermatologic: Evaluation reveals no evidence of rash. LABORATORY DATA: Hemoglobin 8.9, hematocrit 28.3. ASSESSMENT AND PLAN: 1. Gastrointestinal bleed-patient's EGD, push enteroscopy and colonoscopy all returned negative. This would suggest a small bowel etiology. At this point, the patient's hemoglobin and hematocrit are stable suggesting possible cessation of bleeding. We will continue supportive care. We have attempted transfer to [facility] on 2 occasions, however a bed is not available. Should the patient experience a repeat episode of bleeding, we will consider transfer to [place] or [facility]. 2. Acute renal failure-the patient has achieved improvement with hydration. We will remain aware. 3. Hypernatremia-patient has achieved improvement with treatment with half-normal saline. 4. Profound weakness-this is significant. We will plan to initiate physical therapy once his GI bleeding has completely resolved. 5. Coronary artery disease-we will continue home medications. 6. Atrial fibrillation/anticoagulation-patient is rate controlled. He is not an anticoagulation candidate. We will remain aware. 7. Diabetes-we will continue patient with sliding scale insulin. 8. Coughing and congestion-patient's condition is stable. We will hold off on medical intervention for now. 9. Disposition-at this point, patient continues to require shelter care in the hospital setting. We will plan discharge home once appropriate. cc: Humza Christopher MD
[2017-03-03 05:30] LABS: MANUAL DIFF NEEDED? NO
[2017-03-03 05:35] LABS: BASO% 0.2 % (0.0-0.8); EOS# 0.04 X1000 (0.0-0.7); EOS% 0.9 % (0.0-10.0); HEMATOCRIT 28.9 % (42.0-52.0); HEMOGLOBIN 9.2 g/dL (14.0-18.0); LYMPH# 1.03 X1000 (1.2-3.4); LYMPH% 22.2 % (20.5-51.1); MCH 28.8 PG (27-31); MCHC 31.8 g/dL (33-37); MCV 90.3 FL (81-99); MONO# 0.44 X1000 (0.11-0.59); MONO% 9.5 % (1.7-9.3); MPV 10.6 FL (7.4-10.4); NEUT% 67.2 % (42.2-75.2); PLT 73 X1000 (130-400)
[2017-03-03 06:05] LABS: ALBUMIN 2.5 g/dL (3.5-5.0); CALCIUM 7.8 mg/dL (8.8-10.2); TOTAL BILIRUBIN 0.45 mg/dL (0.20-1.00); TOTAL PROTEIN 5.8 g/dL (6.3-8.3)
[2017-03-03] MEDS: PRILOSEC PO SCH (06:29)
[2017-03-03] MEDS: 1/2 NS 1,000 ML IV SCH (06:31)
[2017-03-03] MEDS: PROSCAR PO SCH (08:31)
[2017-03-03] MEDS: LEXAPRO PO SCH (08:31)
[2017-03-03] MEDS: TENORMIN PO SCH (08:31)
[2017-03-03] MEDS: ARICEPT PO SCH (08:31)
[2017-03-03] MEDS: FLOMAX PO SCH (08:31)
[2017-03-03] MEDS: ZOFRAN IV PRN ×2 (08:47→16:11)
[2017-03-03 10:40] LABS: HEMATOCRIT 27.3 % (42.0-52.0); HEMOGLOBIN 8.7 g/dL (14.0-18.0)
--- NOTE | 2017-03-03 13:18 | PROGRESS NOTE ---
DATE: 03/03/2017 SUBJECTIVE: Patient is lying in bed in no acute distress. I have talked with family at the bedside. No reported active bleeding today. Hemoglobin and hematocrit are slightly decreased from yesterday. OBJECTIVE: Vital signs: Temperature 98.3, pulse 70, respirations 17, blood pressure 146/60. LABORATORY: Hematology: White count 4.63, hemoglobin 8.7, hematocrit 27.3, MCV 90.3. Chemistry: Sodium 137, potassium 4.0, chloride 105, CO2 21, BUN 23, creatinine 1.6, glucose 124, total bilirubin 0.45, AST 41, ALT 18, alkaline phosphatase 214. ASSESSMENT AND PLAN: 1. Gastrointestinal bleed with negative findings per EGD, push enteroscopy, and colonoscopy. Questionable small bowel etiology. There has been an attempt to transfer him to [facility]. Dr. Porter has talked to the doctors there on two different occasions, and there are no beds available. 2. Acute renal failure, improving. 3. Weakness. 4. Dementia. 5. Atrial fibrillation. No anticoagulation at this time due to his history of gastrointestinal bleed. Continue current medications. Continue to monitor hemoglobin and hematocrit and monitor for active bleeding. One option discussed by Dr. Porter is, if he has an episode of active bleeding, getting a CT angiogram and that can be scheduled if he has further active bleeding. We will continue to follow, and further plans will be made as needed. I have discussed this case with Dr. Porter. Dictated by MARY ANN Montero for Papo Porter MD cc: MARY ANN Pickard MD Scott A. Matthews, MD
[2017-03-03] MEDS ORDERED: BLISTEX MEDICATED BERRY LIP BALM TOP PRN (14:37)
[2017-03-03 14:54] LABS: HEMATOCRIT 28.3 % (42.0-52.0); HEMOGLOBIN 8.9 g/dL (14.0-18.0)
[2017-03-03] MEDS ORDERED: ATIVAN IV PRN (16:35)
--- NOTE | 2017-03-03 16:40 | PROGRESS NOTE ---
DATE: 03/03/2017 SUBJECTIVE: Patient's overall condition is largely unchanged. The patient has experienced no further episodes of hematochezia or melena. He denies fevers, chills, nausea, or vomiting. His p.o. intake is marginal, but he is tolerating liquids reasonably well. He continues to be very deconditioned. OBJECTIVE: T-max is 98.8 degrees, heart rate 70-86, respirations 17-26, blood pressure 146 to 181/60 to 86.General: Elderly. No acute distress. Cardiovascular: Irregularly irregular. No significant murmurs, rubs, or gallops. Pulmonary: Clear to auscultation anteriorly. Abdomen: Soft, nontender, nondistended. Positive bowel sounds. Extremities: Moves all extremities well. No significant clubbing, cyanosis, or edema. Dermatologic: Evaluation reveals no evidence of rash. LABORATORY DATA: White blood count 4.63, hemoglobin 9.2, hematocrit 28.9, platelet count 73,000. Sodium 137, potassium 4.0, chloride 105, bicarb 21, BUN 23, creatinine 1.6, glucose 124, calcium 7.8. Total bilirubin 0.45, total protein 5.8, albumin 2.5, alkaline phosphatase 214, AST 41, ALT 18. ASSESSMENT AND PLAN: 1. Gastrointestinal bleed - this likely is small bowel in origin. Patient's EGD, push enteroscopy, and colonoscopy all returned negative. At this point, his hemoglobin and hematocrit have stabilized. He has had no further evidence of bleeding. For now, we will continue supportive care. Should he experience a repeat bleed, we will again attempt transfer to [facility] for Interventional Radiology consultation. 2. Acute renal failure - patient's creatinine is stable with hydration. We will remain aware. 3. Hypernatremia - patient has achieved improvement with half-normal saline. 4. Profound weakness - this is significant. Once his bleeding has stabilized, we will initiate physical therapy. 5. Coronary artery disease - we will continue home medications. He is not a candidate for aspirin therapy. 6. Atrial fibrillation/anticoagulation - patient is rate controlled. He is not an anticoagulation candidate. 7. Diabetes - we will continue sliding scale insulin. 8. Cough and congestion - this is slowly improving. I suspect this is viral in etiology. 9. Disposition - at this point, patient continues to require shelter care in a hospital setting. We will plan discharge home once appropriate. cc: Humza Christopher MD
[2017-03-03 20:51] LABS: HEMATOCRIT 27.5 % (42.0-52.0); HEMOGLOBIN 8.8 g/dL (14.0-18.0)
[2017-03-03] MEDS: SEROQUEL XR PO SCH (21:41)
[2017-03-03] MEDS: BUSPAR PO SCH (21:41)
[2017-03-04 02:52] LABS: HEMATOCRIT 29.6 % (42.0-52.0); HEMOGLOBIN 9.4 g/dL (14.0-18.0)
[2017-03-04 03:11] LABS: ALBUMIN 2.4 g/dL (3.5-5.0); CALCIUM 7.4 mg/dL (8.8-10.2); TOTAL BILIRUBIN 0.6 mg/dL (0.20-1.00); TOTAL PROTEIN 5.8 g/dL (6.3-8.3)
[2017-03-04] MEDS: PROSCAR PO SCH (08:49)
[2017-03-04] MEDS: TENORMIN PO SCH (08:49)
[2017-03-04] MEDS: LEXAPRO PO SCH (08:49)
[2017-03-04 08:50] LABS: HEMATOCRIT 28.9 % (42.0-52.0); HEMOGLOBIN 9.3 g/dL (14.0-18.0)
[2017-03-04] MEDS: ARICEPT PO SCH (08:50)
[2017-03-04] MEDS: FLOMAX PO SCH (08:50)
[2017-03-04] MEDS: PRILOSEC PO SCH (08:50)
[2017-03-04] MEDS: 1/2 NS 1,000 ML IV SCH ×2 (09:44→21:38)
--- NOTE | 2017-03-04 20:36 | PROGRESS NOTE ---
DATE: 03/04/2017 SUBJECTIVE: Overall, patient's condition is largely unchanged. Patient has had no further episodes of hematochezia, melena, or hematemesis. His p.o. intake remains marginal. He remains very weak. There has been no evidence of fevers, chills, shortness of breath, or chest discomfort. Patient has developed intermittent anxiety. OBJECTIVE: T-max 98.9 degrees, heart rate 62-79, respirations 16-28, blood pressure 101-123/60- 73.General: Chronically ill appearing, in no acute distress. Cardiovascular: Regularly irregular, no significant murmurs, rubs, or gallops. Pulmonary: Clear to auscultation anteriorly. Abdomen: Soft, nontender, nondistended. Positive bowel sounds. Extremities: Moves all extremities well. No significant clubbing, cyanosis, or edema. Dermatologic: Evaluation reveals no evidence of rash. LABORATORY DATA: Sodium 137, potassium 4.0, chloride 104, bicarb 20, BUN 21, creatinine 1.6, glucose 148, calcium 7.4, total bilirubin 0.60, total protein 5.8, albumin 2.4, alkaline phosphatase 273, AST 48, ALT 23, hemoglobin 9.3, hematocrit 28.9. ASSESSMENT AND PLAN: 1. Gastrointestinal bleed-this likely is small bowel in origin. Over the course of the last 24 hours, patient has had no further significant hematochezia or melena. His hemoglobin and hematocrit are stable. For now, we will continue supportive care. Should patient experience a repeat episode of bleeding, we will consider a CT angiogram for localization of the bleed and referral to [facility] for surgical/radiologic intervention. 2. Acute renal failure-patient's creatinine is stable with hydration. We will continue to follow. 3. Hypernatremia. 4. Profound weakness-unfortunately, this is significant. Once patient's overall clinical condition has stabilized, we will plan to initiate physical therapy. 5. Coronary artery disease. We will continue home medications with the exception of aspirin therapy. He is not a candidate at present time. 6. Atrial fibrillation/anticoagulation-patient remains rate controlled. Once again, he is not an anticoagulation candidate. 7. Diabetes - we will continue sliding scale insulin. 8. Cough and congestion-patient overall condition continues to improve. 9. Disposition-at this point, patient continues to require snf care in the hospital setting. We will plan to transfer patient from the ICU to the CICU. cc: Humza Christopher MD
[2017-03-04] MEDS: BUSPAR PO SCH (21:36)
[2017-03-04] MEDS: SEROQUEL XR PO SCH (21:36)
[2017-03-05 05:55] LABS: MANUAL DIFF NEEDED? NO
[2017-03-05 06:16] LABS: BASO% 0.2 % (0.0-0.8); EOS# 0.07 X1000 (0.0-0.7); EOS% 1.7 % (0.0-10.0); HEMATOCRIT 31.1 % (42.0-52.0); HEMOGLOBIN 9.7 g/dL (14.0-18.0); IMM GRAN# 0.02 X1000 (0.0-0.04); IMM GRAN% 0.5 % (0.0-0.5); LYMPH# 1.07 X1000 (1.2-3.4); LYMPH% 26.2 % (20.5-51.1); MCH 28.2 PG (27-31); MCHC 31.2 g/dL (33-37); MCV 90.4 FL (81-99); MONO# 0.46 X1000 (0.11-0.59); MONO% 11.2 % (1.7-9.3); MPV 10.1 FL (7.4-10.4); NEUT% 60.2 % (42.2-75.2); PLT 65 X1000 (130-400); RBC 3.44 XMIL (4.7-6.1)
[2017-03-05 06:25] LABS: CALCIUM 7.8 mg/dL (8.8-10.2)
[2017-03-05] MEDS: 1/2 NS 1,000 ML IV SCH ×2 (07:37→19:15)
[2017-03-05] MEDS: PRILOSEC PO SCH ×2 (07:50→07:56)
[2017-03-05] MEDS: TENORMIN PO SCH (08:54)
[2017-03-05] MEDS: ARICEPT PO SCH (08:54)
[2017-03-05] MEDS: FLOMAX PO SCH (08:54)
[2017-03-05] MEDS: PROSCAR PO SCH (08:54)
[2017-03-05] MEDS: LEXAPRO PO SCH (08:54)
--- NOTE | 2017-03-05 11:36 | PROGRESS NOTE ---
DATE: 03/05/2017 SUBJECTIVE: Overall, patient's condition is largely unchanged from previous. The patient has not experienced hematochezia, melena, or hematemesis within the last 24 hours. This morning, his p.o. intake improved considerably. He continues to have significant weakness. His mental status/dementia is at baseline. There has been no evidence of fevers, chills, shortness of breath, or chest discomfort. OBJECTIVE: T-max 97.9 degrees, heart rate 65-82, respirations 14-28, blood pressure 116-131/67- 78.General: Chronically ill appearing, in no acute distress. Cardiovascular: Irregularly irregular. No significant murmurs, rubs or gallops. Pulmonary: Clear to auscultation bilaterally. Abdomen: Soft, nontender, nondistended. Positive bowel sounds. Extremities: Moves all extremities well. Integumentary: Reveals no evidence of rash. LABORATORY DATA: White blood cell count 4.09, hemoglobin 9.7, hematocrit 31.1, platelet count 65,000. Sodium 141, potassium 4.0, chloride 107, bicarb 29, BUN 17, creatinine 1.3, glucose 112, calcium 7.8. ASSESSMENT AND PLAN: 1. Gastrointestinal bleed - with a negative EGD, push enteroscopy, and colonoscopy, this suggests a small bowel origin. At present time, patient is asymptomatic. His hemoglobin and hematocrit are stable. We will continue conservative treatment. Should he develop a recurrent bleed, we will consider a CT angiogram for localization and again pursue transfer to [facility]. At this point, no bed has been available. 2. Acute renal failure - patient has achieved improvement with IV hydration. 3. Profound weakness - this is significant. As patient's condition is improving, we will start physical therapy. Patient likely will require rehabilitation at discharge. 4. Coronary artery disease - we will continue home medications with the exception of aspirin. He is asymptomatic. 5. Atrial fibrillation/anticoagulation - patient is rate controlled. He is not an anticoagulation candidate at present time secondary to his GI bleed. 6. Diabetes - we will continue sliding scale insulin. 7. Cough/congestion - patient has achieved improvement. We will remain aware. 8. Thrombocytopenia - patient's platelet count is slowly trending downward. His medications are unchanged from admission. At this point, we will continue to monitor. Should this continue to decline, we will consider Hematology consultation. 9. Disposition- at this point, patient continues to require intermediate care in a hospital setting. We will plan transfer out of ICU to the CICU once a bed is available. cc: Humza Christopher MD
--- NOTE | 2017-03-05 13:09 | PROGRESS NOTE ---
DATE: 03/05/2017 The patient has not had any further episodes of bleeding. Family members state he had a good breakfast. OBJECTIVE: Vital Signs: Temperature 97.2 degrees, pulse 65, respirations 14, blood pressure 108/58. General: Patient is resting in no acute distress. Respiratory: Lung sounds essentially clear. Cardiovascular: Irregular rate. Abdomen: Soft, nontender. Positive bowel sounds. LABORATORY: Hematology: White count 4.09, hemoglobin 9.7, hematocrit 31.1, MCV 90.4. Chemistry: Sodium 141, potassium 4.0, chloride 107, CO2 29, BUN 17, creatinine 1.3, glucose 112. ASSESSMENT AND PLAN: GI bleed with negative EGD with push enteroscopy and colonoscopy. Questionable small bowel origin. No further active bleeding over the last 2 days. We will continue to monitor. If develops active bleeding consider CT angiogram for evaluation of site of bleeding. We had tried to pursue transfer to [facility] for an interventional radiology approach but there were no beds available. We will continue to follow along and further plans will be made as needed. Further plans to be made according to Dr. Porter and other medical team. Will continue to follow along and be available as needed. Dictated by MARY ANN Montero for Papo Porter MD cc: MARY ANN Pickard MD Scott A. Matthews, MD
[2017-03-05] MEDS: BUSPAR PO SCH (20:45)
[2017-03-05] MEDS: SEROQUEL XR PO SCH (20:45)
[2017-03-06] MEDS: PRILOSEC PO SCH ×2 (05:37→06:02)
[2017-03-06 06:43] LABS: MANUAL DIFF NEEDED? NO
[2017-03-06 06:56] LABS: BASO% 0.4 % (0.0-0.8); EOS# 0.06 X1000 (0.0-0.7); EOS% 1.2 % (0.0-10.0); HEMATOCRIT 28.8 % (42.0-52.0); HEMOGLOBIN 9.2 g/dL (14.0-18.0); IMM GRAN# 0.02 X1000 (0.0-0.04); IMM GRAN% 0.4 % (0.0-0.5); LYMPH# 0.94 X1000 (1.2-3.4); LYMPH% 19.2 % (20.5-51.1); MCH 28.8 PG (27-31); MCHC 31.9 g/dL (33-37); MONO# 0.61 X1000 (0.11-0.59); MONO% 12.5 % (1.7-9.3); MPV 10.5 FL (7.4-10.4); NEUT% 66.3 % (42.2-75.2); PLT 78 X1000 (130-400)
[2017-03-06] MEDS: FLOMAX PO SCH (09:02)
[2017-03-06] MEDS: ARICEPT PO SCH (09:02)
[2017-03-06] MEDS: PROSCAR PO SCH (09:02)
[2017-03-06] MEDS: LEXAPRO PO SCH (09:02)
[2017-03-06] MEDS: TENORMIN PO SCH (09:02)
--- NOTE | 2017-03-06 12:07 | PROGRESS NOTE ---
DATE: 03/06/2017 SUBJECTIVE: Overall, the patient's condition continues to very slowly improve. Overnight, the patient was transferred from the ICU to the CICU. He tolerated this transfer quite well. The patient does continue to have confusion; however, this is not above his baseline. The patient has had no further episodes of hematochezia, melena or hematemesis. His p.o. intake remains marginal. There has been no evidence of fevers, chills, nausea, vomiting, shortness of breath or chest discomfort. He continues to have a mild cough. OBJECTIVE: Vital signs: T-max is 98.7, heart rate 60 to 84, respirations 14 to 18, blood pressure 108 to 149 over 58 to 89. General: Elderly, chronically ill, no acute distress. Cardiovascular: Irregularly irregular. No significant murmurs, rubs or gallops. Pulmonary: Clear to auscultation anteriorly. Abdomen: Soft, nontender and nondistended. Positive bowel sounds. Extremities: Moves all extremities well. No significant cyanosis, clubbing or edema. Dermatologic: No evidence of rash. DIAGNOSTIC DATA: White blood cell count is 4.89, hemoglobin 9.2, hematocrit 28.8, platelet count 78,000. ASSESSMENT AND PLAN: 1. Gastrointestinal bleed. As per previous notes, this appears to be small bowel in etiology. EGD, push enteroscopy and colonoscopy all returned negative. At the present time, the patient is asymptomatic without evidence of hematochezia, melena or hematemesis. His hemoglobin and hematocrit are stable. We will continue conservative management. We will avoid all anticoagulation and antiplatelet agents. 2. Acute renal failure. The patient has achieved improvement with IV hydration. We will continue to follow. We will encourage p.o. intake as well. 3. Profound weakness. The patient's condition is stable. We will initiate physical therapy. The patient likely will require rehabilitation at time of discharge. Our goal will be safe transfer from bed to chair. 4. Coronary artery disease. The patient has longstanding disease. We will continue his optimum medical management with the exception of aspirin therapy. 5. Atrial fibrillation/anticoagulation. The patient remains rate controlled. He is not an anticoagulant candidate secondary to his GI bleed. We will remain aware. 6. Diabetes. We will continue sliding scale insulin. 7. Cough/congestion. The patient continues to have a mild cough. White blood cell count is within normal limits. He does appear to be very slowly improving. We will encourage incentive spirometry. 8. Thrombocytopenia. The patient's platelet count is slightly increased from yesterday. As above, he has no evidence of active bleeding at present time. We will remain aware. 9. Disposition. At this point, the patient continues to require jail care in the hospital setting. Should the patient's condition continue to improve, we will plan discharge to rehabilitation next week. cc: Humza Christopher MD
[2017-03-06] MEDS: 1/2 NS 1,000 ML IV SCH (18:17)
[2017-03-06] MEDS: SEROQUEL XR PO SCH (20:46)
[2017-03-06] MEDS: BUSPAR PO SCH (20:46)
[2017-03-07] MEDS: PRILOSEC PO SCH (06:10)
[2017-03-07] MEDS: TENORMIN PO SCH (08:27)
[2017-03-07] MEDS: FLOMAX PO SCH (08:27)
[2017-03-07] MEDS: LEXAPRO PO SCH (08:27)
[2017-03-07] MEDS: ARICEPT PO SCH (08:27)
[2017-03-07] MEDS: PROSCAR PO SCH (08:28)
--- NOTE | 2017-03-07 14:34 | PROGRESS NOTE ---
DATE: 03/07/2017 SUBJECTIVE: The patient's condition continues to very slowly improve. Over the course of the last 24 hours, the only change is that of mild increase in coughing. He has had multiple sick exposures and his and a caregiver who suffered from an upper respiratory illness. There has been no evidence of fevers, chills, or shortness of breath. His p.o. intake remains marginal. His mentation remains intermittently confused. There has been no evidence of fevers, chills, nausea, vomiting, or chest discomfort. OBJECTIVE: Vital signs: T-max 98.5 degrees, heart rate 67-92, respirations 14-18, blood pressure 131-160 over 77-93. General: Chronically ill appearing, no acute distress. Cardiovascular: Irregularly irregular. No significant murmurs, rubs, or gallops. Pulmonary: Clear to auscultation bilaterally. Abdomen: Soft, nontender, nondistended. Positive bowel sounds. Extremities: Moves all extremities well. No significant clubbing, cyanosis, or edema. Dermatologic: Evaluation reveals no evidence of rash. LABORATORY DATA: None. ASSESSMENT AND PLAN: 1. Gastrointestinal bleed-as per previous notes, this likely is small bowel in etiology. He has not experienced any evidence of hematochezia, melena, or hematemesis in the last several days. His hemoglobin and hematocrit have remained stable. For now, we will continue a liquid diet. We will hold all anticoagulants and antiplatelet agents. 2. Acute renal failure-the patient has achieved improvement with hydration. As his p.o. intake improves, we will plan to discontinue IV hydration. 3. Profound weakness-physical therapy has been initiated. Patient will likely require rehabilitation at discharge. 4. Coronary artery disease-patient has longstanding disease. We will continue to optimize his medical management with exception of aspirin therapy. He currently is asymptomatic. 5. Atrial fibrillation/anticoagulation-patient is rate controlled. He is not a candidate for anticoagulation intervention. 6. Diabetes-we will continue patient on sliding scale insulin. Blood sugars are reasonably controlled. 7. Cough and congestion-patient continues to have an intermittent cough. His lung examination does not reveal any evidence of bronchospasm. His oxygen saturation is acceptable. We will check a chest x-ray. For now, we will follow clinically. 8. Thrombocytopenia-this has been noted over the last several days. He has no evidence of current active bleeding. His last platelet count was slightly improved from previous day. 9. Disposition-at this point, patient continues to require prison care in a hospital setting. We will plan to consider social service consult tomorrow for anticipated discharge later this week. cc: Humza Christopher MD
[2017-03-07] MEDS: HUMALOG SUBQ SCH ×2 (16:10→20:47)
[2017-03-07] MEDS: 1/2 NS 1,000 ML IV SCH ×2 (17:22→18:15)
[2017-03-07] MEDS: BUSPAR PO SCH (20:47)
[2017-03-07] MEDS: SEROQUEL XR PO SCH (20:47)
[2017-03-08 05:16] LABS: MANUAL DIFF NEEDED? NO
[2017-03-08 06:11] LABS: ALBUMIN 2.8 g/dL (3.5-5.0); POTASSIUM 3.8 mmol/L (3.5-5.1); TOTAL BILIRUBIN 0.87 mg/dL (0.20-1.00); TOTAL PROTEIN 6.5 g/dL (6.3-8.3)
[2017-03-08] MEDS: HUMALOG SUBQ SCH ×4 (06:20→21:35)
[2017-03-08 06:25] LABS: BASO% 0.2 % (0.0-0.8); EOS# 0.09 X1000 (0.0-0.7); EOS% 1.8 % (0.0-10.0); HEMATOCRIT 30.5 % (42.0-52.0); HEMOGLOBIN 9.6 g/dL (14.0-18.0); IMM GRAN# 0.05 X1000 (0.0-0.04); LYMPH# 0.85 X1000 (1.2-3.4); LYMPH% 16.7 % (20.5-51.1); MCH 28.2 PG (27-31); MCHC 31.5 g/dL (33-37); MCV 89.7 FL (81-99); MONO# 0.64 X1000 (0.11-0.59); MONO% 12.6 % (1.7-9.3); MPV 10.8 FL (7.4-10.4); NEUT% 67.7 % (42.2-75.2); PLT 98 X1000 (130-400)
[2017-03-08] MEDS: PRILOSEC PO SCH (06:37)
--- NOTE | 2017-03-08 07:38 | Diag Imaging Result Document ---
PROCEDURE NAME: CHEST-1 VIEW - 03/08/2017 PORTABLE CHEST, 03/08/2017 AT 0500 HOURS: FINDINGS: The inspiration is slightly better than that on 02/28/2017. There has been no appreciable change otherwise. IMPRESSION: Essentially stable chest.
[2017-03-08] MEDS: TENORMIN PO SCH (08:54)
[2017-03-08] MEDS: FLOMAX PO SCH (08:54)
[2017-03-08] MEDS: ARICEPT PO SCH (08:54)
[2017-03-08] MEDS: PROSCAR PO SCH (08:54)
[2017-03-08] MEDS: LEXAPRO PO SCH (08:54)
[2017-03-08] MEDS ORDERED: CALMOSEPTINE OINTMENT TOP PRN (15:30)
[2017-03-08] MEDS: 1/2 NS 1,000 ML IV SCH ×2 (15:42→18:15)
[2017-03-08] MEDS: SEROQUEL XR PO SCH (21:34)
[2017-03-08] MEDS: BUSPAR PO SCH (21:34)
--- NOTE | 2017-03-08 22:06 | PROGRESS NOTE ---
DATE: 03/08/2017 SUBJECTIVE: Overall condition is largely unchanged or slightly declined from yesterday. He remains significantly confused. His p.o. intake is marginal. Patient's confusion has increased. He is not taking his medications routinely. He continues to cough intermittently. He denies fevers, chills, nausea, vomiting, or chest discomfort. OBJECTIVE: Vital signs: Temperature maximum 98.7, heart rate 73-88, respirations 14-19, blood pressure 122-144/62-93. General: Chronically ill-appearing, in no acute distress. Cardiovascular: Irregularly irregular. No significant murmurs, rubs, or gallops. Pulmonary: Clear to auscultation anteriorly. Abdomen: Soft, nontender, nondistended. Positive bowel sounds. Extremities: Moves all extremities well. No significant clubbing, cyanosis, or edema. Dermatologic: Evaluation reveals no evidence of rash. LABORATORY DATA: White blood cell count 5.08, hemoglobin 9.6, hematocrit 30.5, platelet counts 98,000. Sodium 141, potassium 3.8, chloride 104, bicarb 25, BUN 11, creatinine 1.2, glucose 126, calcium 8, total bilirubin 0.87, total protein 6.5, albumin 2.8, alkaline phosphatase 413, AST 56, ALT 36. ASSESSMENT AND PLAN: 1. Gastrointestinal bleed-with a negative esophagogastroduodenoscopy, push enteroscopy, and colonoscopy. This would suggest the etiology to be small bowel. There has been no evidence of active bleeding as manifest by hematemesis, hematochezia, or melena within the last several days. We will continue a full liquid diet. We will continue to hold anticoagulants and antiplatelet agents. At this point, the risk of pursuing further intervention outweighs the benefits. 2. Acute renal failure-patient has achieved improvement with hydration. 3. Profound weakness-physical therapy has been initiated, however, patient is not demonstrating significant improvement. I am concerned that this represents end-stage disease. This will be as described below. 4. Coronary artery disease-we will continue patient's optimal medical management with the exception of aspirin therapy. 5. Atrial fibrillation/anticoagulation-patient is rate controlled. He is not a candidate for anticoagulation. 6. Cough and congestion-the patient has had multiple exposures. I suspect this is viral in etiology. We will remain aware. 7. Thrombocytopenia-the patient's platelet count remains stable. 8. Elevated alkaline phosphatase-patient's alkaline phosphatase has trended upwards. 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 We will remain aware. 9. Prognosis-unfortunately, patient's overall condition continues to decline. I had a discussion with patient's this evening. I expressed my concerns. She voiced good understanding. We will consider transfer to home hospice on Wednesday. 10. Disposition-at this point, patient continues to require retirement care in the hospital setting. We will plan discharge home once appropriate. cc: Humza Christopher MD
[2017-03-08 22:25] LABS: URINE MICRO REVIEW NEEDED? NO; URINE SOURCE CATH
[2017-03-08 22:29] LABS: BILIRUBIN URINE NEGATIVE (NEGATIVE); BLOOD URINE SMALL (NEGATIVE); COLOR YELLOW; GLUCOSE URINE NEGATIVE (NEGATIVE); LEUKOCYTES URINE LARGE (NEGATIVE); NITRITE URINE NEGATIVE (NEGATIVE); PROTEIN URINE TRACE mg/dL (NEGATIVE); SP GRAVITY URINE 1.008; TURBIDITY URINE HAZY (CLEAR); UR EPITHELIAL CELLS <10 /HPF (<10); URINE BACTERIA NEGATIVE /HPF; URINE CULTURE NEEDED? YES; URINE RBC <10 /HPF (<10); URINE WBC TNTC /HPF (<10); UROBILINOGEN URINE NORMAL (NORMAL)
[2017-03-09] MEDS: HUMALOG SUBQ SCH ×4 (06:28→21:30)
[2017-03-09] MEDS ORDERED: KEFLEX PO SCH (09:00)
[2017-03-09] MEDS: ARICEPT PO SCH ×2 (09:28→09:29)
[2017-03-09] MEDS: FLOMAX PO SCH (09:29)
[2017-03-09] MEDS: PROSCAR PO SCH (09:30)
[2017-03-09] MEDS: PRILOSEC PO SCH (09:30)
[2017-03-09] MEDS: TENORMIN PO SCH (09:30)
[2017-03-09] MEDS: LEXAPRO PO SCH (09:30)
[2017-03-09] MEDS: ROCEPHIN 1 GM/NS 1 GM/50 ML IVPB IV SCH (10:03)
[2017-03-09] MEDS: 1/2 NS 1,000 ML IV SCH (13:34)
--- NOTE | 2017-03-09 21:18 | PROGRESS NOTE ---
DATE: 03/09/2017 SUBJECTIVE: Unfortunately, patient's overall condition continues to slowly decline. Patient is less interactive today. His p.o. intake has been minimal. There has been no evidence of fevers, chills, nausea, vomiting, shortness of breath, or chest discomfort. OBJECTIVE: Vital signs: T-max 100.3 degrees, heart rate 56-84, respirations 15-26, blood pressure 117-166 over 60-80. General: Chronically ill appearing, no acute distress. Cardiovascular: Irregularly irregular. No significant murmurs, rubs or gallops. Pulmonary: Clear to auscultation anteriorly. Abdomen: Soft, nontender, nondistended. Positive bowel sounds. Extremities: Moves all extremities well. No significant clubbing, cyanosis or edema. Dermatologic: Evaluation reveals no evidence of rash. LABORATORY DATA: None. ASSESSMENT AND PLAN: 1. Gastrointestinal bleed-patient is status post negative EGD, push enteroscopy , and colonoscopy. This would suggest a small bowel etiology. At present time patient has no evidence of active bleeding. We will continue to follow. His anticoagulation and anti- platelet agents have been held. 2. Acute renal failure-patient achieved improvement with IV hydration. Will remain aware. 3. Profound weakness-unfortunately, this continues to progress. Patient is approaching end stage. We will continue supportive care. 4. Coronary artery disease-for now, we will continue his cardiac regimen. His aspirin, however, has been held. 5. Atrial fibrillation/anticoagulation-Patient rate controlled. Unfortunately, he is not candidate for anticoagulation. 6. Cough and congestion-patient's symptoms remain stable. We will continue supportive care. 7. Thrombocytopenia-patient platelet count at the last evaluation was reasonably stable. We will remain aware. 8. Prognosis-I have discussed patient's case in detail with patient's . At this point, we will consider transition to inpatient hospice. This should be arranged by . 9. Urinary tract infection-will start patient on Rocephin therapy. 10. Disposition-at this point, patient continues to require [facility] care in hospital setting. As above, we will plan transition to home hospice on . cc: Humza Christopher MD [facility]ENTERMaricruz
[2017-03-09] MEDS: BUSPAR PO SCH ×3 (22:00→22:10)
[2017-03-09] MEDS: SEROQUEL XR PO SCH ×2 (22:01→22:14)
[2017-03-10] MEDS: HUMALOG SUBQ SCH ×4 (06:30→21:32)
[2017-03-10] MEDS: FLOMAX PO SCH (09:29)
[2017-03-10] MEDS: PRILOSEC PO SCH (09:29)
[2017-03-10] MEDS: PROSCAR PO SCH (09:29)
[2017-03-10] MEDS: LEXAPRO PO SCH (09:29)
[2017-03-10] MEDS: ARICEPT PO SCH (09:29)
[2017-03-10] MEDS: TENORMIN PO SCH (09:30)
[2017-03-10] MEDS: ROCEPHIN 1 GM/NS 1 GM/50 ML IVPB IV SCH (09:33)
[2017-03-10] MEDS: 1/2 NS 1,000 ML IV SCH (11:30)
[2017-03-10] MEDS: SEROQUEL XR PO SCH (21:28)
[2017-03-10] MEDS: BUSPAR PO SCH (21:28)
--- NOTE | 2017-03-10 22:56 | PROGRESS NOTE ---
DATE: 03/10/2017 SUBJECTIVE: Overall, patient's condition continues to slowly decline. Patient's p.o. intake has decreased further. He remains very weak. He is only minimally interactive. There has been no evidence of fevers, chills, nausea, vomiting, shortness of breath, or chest discomfort. OBJECTIVE: Vital signs: Temperature maximum 100.8 degrees, heart rate 66 to 98 degrees, respirations 12 to 16, blood pressure 122-146/63-92. General: Chronically ill-appearing, no acute distress. Cardiovascular: Regular rate and rhythm. No significant murmurs, rubs, or gallops. Pulmonary: Clear to auscultation anteriorly. Abdomen: Soft, nontender, nondistended. Positive bowel sounds. Extremities: Moves all extremities well. No significant clubbing, cyanosis or edema. Dermatologic: Evaluation reveals no evidence of rash. LABORATORY DATA: Done. ASSESSMENT AND PLAN: 1. Gastrointestinal bleed-as above, patient had a negative esophagogastroduodenoscopy, colonoscopy, and push enteroscopy. This would suggest a small bowel origin. He has not experienced a recurrence in the last several days. At this point, the risk of further investigation and treatment outweighs the benefits. We will remain aware. 2. Acute renal failure-patient achieved improvement with intravenous hydration. 3. Profound weakness-unfortunately, this continues to progress. This likely represents end of life changes. We will continue supportive care. 4. Coronary artery disease-patient is treated with optimized medical management. He is asymptomatic. 5. Atrial fibrillation/anticoagulation-patient is rate controlled. Unfortunately, he is not a candidate for anticoagulation. 6. Cough and congestion-the patient has achieved stabilization. We will remain aware. 7. Urinary tract infection-the patient is being treated with Rocephin therapy. We will remain aware. 8. Fever-this likely represents manifestation from either urine or pulmonary etiologies. At this point, because of patient's continual decline, I feel it would be difficult to fully treat this. We will discuss this further with family. For now, we will continue Rocephin therapy. 9. Prognosis-as above, patient's overall condition continues to decline. Despite aggressive measures, we are no longer achieving improvement. At this point, hospice care is most appropriate. We will plan discharge home in the morning. cc: Humza Christopher MD
[2017-03-11] MEDS: HUMALOG SUBQ SCH (06:14)
[2017-03-11] MEDS ORDERED: KEFLEX PO ONE (08:43)
[2017-03-11] MEDS: FLOMAX PO SCH (09:03)
[2017-03-11] MEDS: PROSCAR PO SCH (09:03)
[2017-03-11] MEDS: TENORMIN PO SCH (09:03)
[2017-03-11] MEDS: ROCEPHIN 1 GM/NS 1 GM/50 ML IVPB IV SCH (09:30)
[2017-03-11] MEDS: LEXAPRO PO SCH (09:30)
[2017-03-11] MEDS: ARICEPT PO SCH (09:30)
[2017-03-11] MEDS: PRILOSEC PO SCH (09:30)
[2017-03-11 12:07] VITALS: BP 134/59
--- NOTE | 2017-03-12 05:19 | DISCHARGE SUMMARY ---
ADMISSION DATE: 02/24/2017 DISCHARGE DATE: 03/11/2017 ADMISSION DIAGNOSES: 1. Gastrointestinal bleed, likely small bowel in etiology. 2. Acute renal failure, resolved. 3. Profound weakness, progressive. 4. Coronary artery disease, present on arrival. 5. Atrial fibrillation/anticoagulation, present on arrival. 6. Urinary tract infection. 7. Fevers. 8. Cough and congestion. PROCEDURES: 1. 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 2. Colonoscopy was performed on 02/26/2017 which revealed diverticulosis and surgical changes. Otherwise no active bleeding noted. 3. A push enteroscopy was performed on a 03/01/2017 which revealed surgical changes in the stomach with no evidence of active bleeding all the way up to the small bowel. CONSULTATIONS: Dr. Porter with Gastroenterology was consulted for further evaluation and management of GI bleed. HISTORY AND PHYSICAL EXAMINATION: See admit note. PHYSICAL EXAMINATION PRIOR TO DISCHARGE: Vital Signs: Temperature 98.7 degrees, heart rate 66, respirations 18, blood pressure is 134/59. General: Chronically ill appearing, no acute distress. Cardiovascular: Irregularly irregular with no significant murmurs, rubs or gallops. Pulmonary: Clear to auscultation anteriorly. Abdomen: Soft, nontender, nondistended. Positive bowel sounds. Extremities: Moves all extremities well. No significant clubbing, cyanosis, or edema. Dermatologic: Evaluation reveals no evidence of rash. LABORATORY DATA: Prior to discharge: None. HOSPITAL COURSE: The patient was admitted as per history and physical examination. Hospital course per condition is as follows. 1. Gastrointestinal bleed-as above, and EGD, colonoscopy, and push enteroscopy were performed. No definitive etiology was identified. This suggests a small bowel origin for the GI bleed. Throughout hospitalization, the patient experienced 2 separate episodes of bleeding. At time of discharge, the patient had not had bleeding within approximately 1 week. Patient's family understands associated risk and that this bleeding may reoccur. For now, we will avoid anti- platelet and anticoagulant agents. We will follow this closely. 2. Urinary tract infection-while hospitalized, the patient developed a urinary tract infection. Patient was treated with Rocephin while hospitalized and it will be converted to Keflex therapy as tolerated. We will follow this. 3. Acute renal failure-upon admission, patient was noted to have acute renal failure, likely secondary to hypovolemia. The patient did achieve improvement with this prior to discharge. 4. Profound weakness/deconditioning-unfortunately, patient's overall condition continues to decline. We discussed this in great detail. At this point, the chances of meaningful survival and recovery is quite low. Patient will the patient will be discharged home with hospice therapy as noted below. 5. Coronary artery disease-patient has extensive disease. We will remain aware. 6. Atrial fibrillation/anticoagulation-patient's atrial fibrillation is rate controlled. He is not a candidate for anticoagulation at this point secondary to his bleeding. We will remain aware. 7. Cough congestion-while hospitalized, patient experienced intermittent coughing. This likely is secondary to aspiration. We will continue aspiration precautions. 8. Fever-prior to discharge, the patient developed intermittent fever, likely secondary to his urinary tract infection. We will continue to follow this as an outpatient as well. 9. Prognosis had multiple long discussions with patient and patient's . Unfortunately, patient's overall condition continues to decline. At this point, the chances of achieving a meaningful recovery is very low. For this reason, we will plan to discharge the patient to hospice care. We will follow him closely as an outpatient as well. DISCHARGE/DISPOSITION: Discharge to home hospice. MEDICATIONS: 1. Keflex 500 mg twice daily for a week. 2. Lexapro 20 mg daily. 3. Proscar 5 mg daily. 4. Atenolol 25 mg daily. 5. Seroquel XR 50 mg at bedtime. 6. Donepezil 10 mg daily. 7. Flomax 0.4 mg daily. 8. Hospice care package. 9. Patient has been asked to discontinue all other medications. FOLLOW UP: No follow up has been arranged. cc: Humza Christopher MD
== END 2017-03-11 11:00 | disposition home or self-care (01) ==
LOC: ED 16:57 → ICU 19:48 → 3S 03-05 19:37
PROVIDERS: ADMIT Internal Medicine; ATTEND Internal Medicine